=== PATIENT | female | born 1950 | race Caucasian/White ===

== ENCOUNTER → 2019-05-08 12:02 | Outpatient (BNVA) | payer MEDICARE, MEDICAID, SELFPAY | PROVIDERS: Family Provider Nurse Practitioner Family; PCP Nurse Practitioner Family; Visit Provider Nurse Practitioner Family | DX: M54.5 Low back pain (principal); M79.605 Pain in left leg; M25.552 Pain in left hip; I10 Essential (primary) hypertension; Z79.899 Other long term (current) drug therapy; E03.9 Hypothyroidism, unspecified | CPT/HCPCS: 36415; 80053; 81001; 83036; 84443; 85025 ==

== ENCOUNTER 2019-06-28 09:19 | Outpatient (CLI) | payer MEDICARE, MEDICAID, SELFPAY ==
--- NOTE | 2019-06-28 09:30 | MR_ITS ---
WS: [id number] MRI LUMBAR SPINE WITH CONTRAST TECHNIQUE: Sagittal T1, T2 and STIR imaging. Axial T1 and T2 imaging. Post gadolinium imaging was obt ained. CLINICAL INFORMATION: Low back pain COMPARISON: April 08, 2016 FINDINGS: Moderate lumbar curve convex right. Pedicle screw fixation L4-5 and L5-S1 with interbody fusion. L1-L2: Mild annular bulging. Moderate central canal stenosis. Narrowing of the subarticular recess bi laterally. Moderate facet arthropathy. Mild right and no significant left foraminal narrowing. L2-L3: Disc osteophyte complex endplate ridging. Impingement left subarticular recess. Mild left fora zehra narrowing. Impingement on the traversing left L3 nerve root. Moderate central canal stenosis. F oramen are patent. Moderate facet arthropathy. L3-L4: Minimal annular bulging with endplate ridging. Moderate facet arthropathy. Spinal canal and fo ramen are patent. Moderate central canal stenosis. L4-L5: Pedicle screw fixation. Interbody fusion. Spinal canal and foramen are patent. Spinal canal woods s been decompressed. L5-S1: Pedicle screw fixation L5-S1 with interbody fusion. Spinal canal and foramen are patent. Visualized pelvic bony structures: Normal. Paravertebral soft tissues: Normal. MR/MR lumbar spine wo/w con [id number] IMPRESSION: 1. Pedicle screw fixation L4-5 with interbody fusion and laminectomy defects n ew from April 08, 2016. 2. Spinal canal and foramen are patent at the fusion levels. 3. Moderate central canal stenosis L1-L2, L2-L3 and L3-L4 due to disc bulging and facet arthropathy with ligamentum flavum hypertrophy. Impingement on the le ft L2-3 subarticular recess. 4. Small right foraminal protrusion L1-2 with mild right foraminal narrowing. 5. Mild left L2-3 foraminal narrowing.
== END 2019-06-28 09:20 | disposition home or self-care (01) ==
LOC: RADWPI 09:25
PROVIDERS: Family Provider Nurse Practitioner Family; PCP Nurse Practitioner Family; Visit Provider Licensed Practical Nurse
DX: M51.17 Intervertebral disc disorders with radiculopathy, lumbosacral region (principal); M54.5 Low back pain
CPT/HCPCS: 72158; A9579

== ENCOUNTER → 2019-07-12 07:36 | Outpatient (BNVA) | payer MEDICARE, MEDICAID, SELFPAY | PROVIDERS: Family Provider Nurse Practitioner Family; PCP Nurse Practitioner Family; Visit Provider Nurse Practitioner | DX: F43.12 Post-traumatic stress disorder, chronic (principal); F33.2 Major depressive disorder, recurrent severe without psychotic features; G47.30 Sleep apnea, unspecified; F17.211 Nicotine dependence, cigarettes, in remission; F33.9 Major depressive disorder, recurrent, unspecified | CPT/HCPCS: 99213 ==

== ENCOUNTER → 2019-10-31 08:40 | Outpatient (BNVA) | payer MEDICARE, MEDICAID, SELFPAY | PROVIDERS: Family Provider Nurse Practitioner Family; PCP Nurse Practitioner Family; Visit Provider Nurse Practitioner | DX: F43.12 Post-traumatic stress disorder, chronic (principal); F33.2 Major depressive disorder, recurrent severe without psychotic features | CPT/HCPCS: 99214 ==

== ENCOUNTER → 2019-11-28 08:24 | Outpatient (BNVA) | payer MEDICARE, MEDICAID, SELFPAY | PROVIDERS: Family Provider Nurse Practitioner Family; PCP Nurse Practitioner Family; Visit Provider Nurse Practitioner | DX: F33.2 Major depressive disorder, recurrent severe without psychotic features (principal); F43.12 Post-traumatic stress disorder, chronic | CPT/HCPCS: 99213 ==

== ENCOUNTER 2019-12-25 07:37 | Outpatient (CLI) | payer MEDICARE, MEDICAID, SELFPAY ==
--- NOTE | 2019-12-25 | MR_ITS ---
WS: [id number] MRI NECK with and without CONTRAST. COMPARISON: 03/24/2015 Multiplanar, multisequence imaging is performed with and without contrast. Quality of this examination is limited by body habitus and motion. Patient has a known large multiloculated RIGHT basal ganglia cyst. This has been reported on multiple prior examinations with no increase in size. 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 There is very minimal asymmetry of the larynx at the level of the vocal c ords but no discrete enhancing mass. Slightly increased soft tissue on the LEFT which does not enhanc e. In part this is probably due to position of the patient. No lymph nodes are identified. Submandibu lar glands and parotid glands are normal. Moderate-sized LEFT mastoid air cell effusion. Lung apices are clear. MR/MR orbit face neck wo/w* [id number] IMPRESSION: 1. No lymphadenopathy or abnormal enhancement within the neck. 2. Stable cyst in the RIGHT basal ganglia and stable Tornwaldt cyst. 3. No parotid gland mass. 4. Study is limited by motion artifact. Consider additional evaluation by CT w ith contrast.
== END 2019-12-25 07:38 | disposition home or self-care (01) ==
LOC: RADSHAW 07:40
PROVIDERS: PCP Nurse Practitioner Family; Visit Provider Specialist
DX: R22.1 Localized swelling, mass and lump, neck (principal); M67.48 Ganglion, other site; J39.2 Other diseases of pharynx
CPT/HCPCS: 70543; A9579

== ENCOUNTER 2020-04-21 06:00 | Outpatient (RCR) | payer MEDICARE, MEDICAID, SELFPAY | END 2020-05-10 23:59 | disposition home or self-care (01) | LOC: WPT 06:00 | PROVIDERS: PCP Nurse Practitioner Family; Referring Provider Nurse Practitioner Family; Visit Provider Nurse Practitioner Family | DX: R42 Dizziness and giddiness (principal) | CPT/HCPCS: 80053; 80061; 81003; 82306; 83036; 84443; 85025; 97110; 97163; 97530 ==

== ENCOUNTER → 2020-04-22 09:34 | Outpatient (BNVA) | payer MEDICARE, MEDICAID, SELFPAY | PROVIDERS: PCP Nurse Practitioner Family; Visit Provider Nurse Practitioner Family | DX: E03.9 Hypothyroidism, unspecified (principal) | CPT/HCPCS: 84481 ==

== ENCOUNTER 2020-05-18 14:49 | Outpatient (CLI) | payer MEDICARE, MEDICAID, SELFPAY ==
--- NOTE | 2020-05-18 14:52 | MR_ITS ---
WS: [id number] MRI HEAD WITH CONTRAST TECHNIQUE: Sagittal T1, T2 axial, T2 axial FLAIR, axial susceptibility weighted imaging, axial diffus ion weighted images, and coronal T2 images were obtained. Pre and post-T1 axial and post T1 coronal i mages. ADC and FSPGR images. CLINICAL INFORMATION: G93.0 - Cerebral cysts COMPARISON: MRI December 25, 2019 and April 2012. FINDINGS: Stable multiloculated cystic lesion within the right basal ganglia unchanged appearance [id number]. A few internal septations. This is most compatible with a neuroglial cyst. No evidence of progression. No progressed surrounding T2 signal abnormality or edema. No abnormal gadolinium enhancement. Stable associated shunt within the dependent portion of the cyst. No hydrocephalus. No restricted diffusion to suggest acute ischemia. Mild small vessel changes. Moder ate parenchymal volume loss. Small vessel changes in the hayde. Normal posterior fossa. Normal vascula r flow voids at the skull base. No extra axial fluid collections. Paranasal sinuses and mastoid air c ells are well aerated. Stable Tornwaldt cyst in the posterior nasopharynx. No abnormal gadolinium enh ancement. Normal dural venous sinuses. MR/MR head wo/w con [id number] IMPRESSION: 1. Stable multiloculated cystic lesion right basal ganglia with unchanged jhon nt. 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 2. No restricted diffusion to suggest acute ischemia. 3. Mild small vessel changes progressed since 2012. Moderate parenchymal volum e loss. 4. No other significant findings.
[2020-05-18] MEDS: gadobenate dimeglumine 20 mL vial IV (16:47)
== END 2020-05-18 14:50 | disposition home or self-care (01) ==
LOC: RADSHAW 14:49
PROVIDERS: PCP Family Medicine; Visit Provider Nurse Practitioner Family
DX: G93.0 Cerebral cysts (principal)
CPT/HCPCS: 70553; A9577

== ENCOUNTER → 2020-06-04 00:01 | Outpatient (BNVA) | payer MEDICARE, MEDICAID, SELFPAY | PROVIDERS: PCP Family Medicine; Visit Provider Nurse Practitioner Family | DX: J01.40 Acute pansinusitis, unspecified (principal); E03.9 Hypothyroidism, unspecified | CPT/HCPCS: 84439; 84443 ==

== ENCOUNTER → 2020-08-13 11:34 | Outpatient (BNVA) | payer MEDICARE, MEDICAID, SELFPAY | PROVIDERS: PCP Family Medicine; Visit Provider Specialist | DX: G24.5 Blepharospasm (principal); G93.0 Cerebral cysts; Z87.891 Personal history of nicotine dependence | CPT/HCPCS: 99215 ==

== ENCOUNTER → 2020-08-19 12:02 | Outpatient (BNVA) | payer MEDICARE, MEDICAID, SELFPAY | PROVIDERS: PCP Family Medicine; Visit Provider Nurse Practitioner Family | DX: E03.9 Hypothyroidism, unspecified (principal); J01.40 Acute pansinusitis, unspecified | CPT/HCPCS: 84439; 84443; 84481 ==

== ENCOUNTER → 2020-09-01 11:33 | Outpatient (BNVA) | payer MEDICARE, MEDICAID, SELFPAY | PROVIDERS: PCP Family Medicine; Visit Provider Nurse Practitioner | DX: F33.2 Major depressive disorder, recurrent severe without psychotic features (principal); F43.12 Post-traumatic stress disorder, chronic | CPT/HCPCS: 99214 ==

== ENCOUNTER → 2020-11-26 07:15 | Outpatient (BNVA) | payer MEDICARE, MEDICAID, SELFPAY | PROVIDERS: PCP Family Medicine; Visit Provider Nurse Practitioner | DX: F33.2 Major depressive disorder, recurrent severe without psychotic features (principal); F43.12 Post-traumatic stress disorder, chronic | CPT/HCPCS: 99214 ==

== ENCOUNTER 2021-02-04 08:34 | Outpatient (CLI) | payer MEDICARE, MEDICAID, SELFPAY ==
[2021-02-04 08:49] VITALS: BMI 30.7
--- NOTE | 2021-02-04 09:49 | ECG_ITS ---
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 The perfusion scan will be documented separately. DATA: Baseline heart rate was 72 beats per minute. Baseline blood pressure was 220/70 millimeters of mercury. Target heart rate was 151. Maximum heart rate achieved was 93. which was 61 % of the predicted target heart rate. Maximum blood pressure was 220/70 millimeters of mercury. The reason for ending the test was completion of the protocol. The patient did not experience any symptoms. ELECTROCARDIOGRAM: BASELINE: Sinus rhythm. Normal axis. Old anterior wall myocardial infarction poor R wave progression due to lead placement otherwise, no ST-T changes suggestive of ischemia noted. No arrhythmia noted. After Lexiscan injection, PVCs were noted no ST-T changes suggestive of ischemic noted. CONCLUSION: Please note due to baseline abnormality of the EKG specificity and sensitivity of the EKG portion of LexiScan MIBI stress test will be low 1. EKG not suggestive of ischemia 2. Lexiscan injection unremarkable. 3. Blood pressure response was hypertensive 4. Perfusion scan will be documented separately. Electronically Signed On 02-04-2021 20:49:17 CDT by GERARDO MANCILLA [id number]
--- NOTE | 2021-02-04 09:49 | NMCV_ITS ---
NM americo perf SPECT r/s* [id number] Marycarmen Costello Age: 70 Gender: F : 1950 Exam Date: 02/04/2021 09:49 Ordering Phys: Peter Stoddard PA-C XX Technologist: MICHAEL Leos Exam Location: [facility] Indications: CHEST PAIN STRESS TEST Please see separate stress test report in [facility] for full findings IMAGE PROTOCOL Rest/Stress 1 Lexiscan Day Radiopharmaceutical Dose (mCi) Administration Site Administered by Rest: Tc-99m 10.8 IV MICHAEL Garsia Sestamibi Stress:Tc-99m 32.7 IV MICHAEL Garsia Sestamibi Rest: 04-Feb-2021 60 Discovery 630 Stress: 04-Feb-2021 30 Discovery 630 0.4mg Lexiscan. Images obtained in supine and prone position. SPECT RESULTS Technical Quality: Excellent Raw Data Analysis: Normal Image Corrections: No attenuation or motion correction applied Summed Stress Score: 1 Summed Rest Score: 0 Summed Difference Score: 1 PERFUSION FINDINGS Medium-sized area of patchy reduced tracer uptake noted in basal to mid anterior wall in the absence of wall motion abnormality it could be an artifact. Small area of mild reversibility noted in basal to mid inferior wall, in the absence of wall motion of normality it could be an artifact however cannot rule out ischemia and therefore clinical correlation advised. FUNCTIONAL RESULTS (calculated via Gated SPECT) Stress Image LV EF (%): 83 Stress EDV (mL):76 TID: 1 Stress ESV (mL):13 Rest Image LV EF (%): 83 FUNCTIONAL FINDINGS: There is normal left ventricular systolic function. IMPRESSIONS Medium-sized area of patchy reduced tracer uptake noted in basal to mid anterior wall in the absence of wall motion abnormality it could be an artifact. Small area of mild reversibility noted in basal to mid inferior wall, in the absence of wall motion of normality it could be an artifact however cannot rule out ischemia and therefore clinical correlation advised. EKG segment will be documented separately. Angelita Shine MD (Electronically Signed) Final Date: 04 February 2021 18:03 S
[2021-02-04] MEDS: regadenoson 0.4 Mg/5 ml Syringe IVP (10:28)
== END 2021-02-04 08:35 | disposition home or self-care (01) ==
PROVIDERS: PCP Family Medicine; Visit Provider Physician Assistant Medical
DX: R07.9 Chest pain, unspecified (principal)
CPT/HCPCS: 78452; A9500; J2785

== ENCOUNTER → 2021-02-18 07:52 | Outpatient (BNVA) | payer MEDICARE, MEDICAID, SELFPAY | PROVIDERS: PCP Family Medicine; Visit Provider Nurse Practitioner | DX: F33.2 Major depressive disorder, recurrent severe without psychotic features (principal); F43.12 Post-traumatic stress disorder, chronic; F33.9 Major depressive disorder, recurrent, unspecified | CPT/HCPCS: 99214 ==

== ENCOUNTER 2021-03-25 12:58 | Outpatient (CLI) | payer MEDICARE, MEDICAID, SELFPAY ==
--- NOTE | 2021-03-25 13:17 | MM_ITS ---
WS: [id number] Bilateral screening digital mammogram, 03/25/2021 Clinical Data: SCREENING Comparison: 01/10/2019, 11/26/2018, 12/07/2017, 11/21/2017, 10/29/2015, 09/30/2014, 03/09/2012, 02/14/2011, 08/30/2010, 01/07/2010. Findings: The breast parenchymal pattern shows fibroglandular tissue No spiculated masses or clustered calcific ations are seen. There are no secondary signs of carcinoma. There is a biopsy clip in the upper outer quadrant of the right breast. MM/[place] [id number] Impression: 1. Negative bilateral mammogram unchanged. 2. Recommend annual screening mammograms. BIRADS: 2-Benign FOLLOW UP: 1 Year Follow-up The CAD frickertron checker was used.
== END 2021-03-25 12:59 | disposition home or self-care (01) ==
LOC: RADSHAW 13:14
PROVIDERS: PCP Nurse Practitioner Family; Visit Provider Nurse Practitioner Family
DX: Z12.31 Encounter for screening mammogram for malignant neoplasm of breast (principal)
CPT/HCPCS: 77067

== ENCOUNTER → 2021-04-14 13:54 | Outpatient (BNVA) | payer MEDICARE, MEDICAID, SELFPAY | PROVIDERS: PCP Nurse Practitioner Family; Referring Provider Physician Assistant Medical; Visit Provider Podiatrist Foot & Ankle Surgery | DX: M25.571 Pain in right ankle and joints of right foot (principal); M79.672 Pain in left foot | CPT/HCPCS: 73610; 77077 ==

== ENCOUNTER 2021-04-14 14:35 | Outpatient (CLI) | payer MEDICARE, MEDICAID, SELFPAY | END 2021-04-14 14:36 | disposition home or self-care (01) | LOC: SPT 14:39 | PROVIDERS: PCP Nurse Practitioner Family; Visit Provider Podiatrist Foot & Ankle Surgery | DX: Z46.89 Encounter for fitting and adjustment of other specified devices (principal); M76.61 Achilles tendinitis, right leg; M76.62 Achilles tendinitis, left leg | CPT/HCPCS: 97760; L4397 ==

== ENCOUNTER → 2021-05-18 07:25 | Outpatient (BNVA) | payer MEDICARE, MEDICAID, SELFPAY | PROVIDERS: PCP Nurse Practitioner Family; Visit Provider Nurse Practitioner | DX: F33.2 Major depressive disorder, recurrent severe without psychotic features (principal); F43.12 Post-traumatic stress disorder, chronic; F33.9 Major depressive disorder, recurrent, unspecified | CPT/HCPCS: 99214 ==

== ENCOUNTER → 2021-07-15 10:27 | Outpatient (BNVA) | payer MEDICARE, MEDICAID, SELFPAY | PROVIDERS: PCP Nurse Practitioner Family; Visit Provider Internal Medicine Cardiovascular Disease | DX: I10 Essential (primary) hypertension (principal); R94.39 Abnormal result of other cardiovascular function study; G47.33 Obstructive sleep apnea (adult) (pediatric); E78.2 Mixed hyperlipidemia; E03.9 Hypothyroidism, unspecified; Z87.891 Personal history of nicotine dependence | CPT/HCPCS: 99215 ==

== ENCOUNTER 2021-07-27 08:09 | Outpatient (CLI) | payer MEDICARE, MEDICAID, SELFPAY ==
[2021-07-27 08:59] LABS: Basophils % 0.8 %; Eosinophils # 0.2 10^3/uL (0.0-0.8); Eosinophils % 3.7 %; Hematocrit 35.3 % (37.0-47.0); Hemoglobin 10.9 g/dL (11.5-15.3); Lymphocytes # 1.3 10^3/uL (0.8-4.8); Lymphocytes % 24.3 %; Mean Corpuscular HGB Conc 30.9 g/dL (30.0-36.0); Mean Corpuscular Hemoglobin 28.3 pg (28.0-34.0); Mean Corpuscular Volume 91.7 fl (81-99); Mean Platelet Volume 10.8 fL (7.4-10.4); Monocytes # 0.4 10^3/uL (0.2-0.9); Monocytes % 7.2 %; Neutrophils # 3.23 10^3/uL (1.8-7.7); Neutrophils % 62.6 %; Nucleated Red Blood Cells % 0 %; Platelet Count 195 10^3/cmm (130-400); Red Blood Count 3.85 10^6/uL (4.1-5.3); Red Cell Distribution Width 14.7 % (12.1-15.1); White Blood Count 5.2 10^3/uL (4.0-10.0)
[2021-07-27 09:09] LABS: Anion Gap 15.9 (5-19); Blood Urea Nitrogen 20 mg/dL (8-23); Calcium 9.8 mg/dL (8.5-10.5); Carbon Dioxide 24 mmol/L (22-29); Chloride 104 mmol/L (98-107); Glomerular Filtration Rate 49.1 mL/min (90-130); Glucose 119 mg/dL (65-115); Osmolality Calculated 294 mOsm/kg (285-295); Potassium 3.9 mmol/L (3.5-5.1); Sodium 140 mmol/L (136-145)
[2021-07-27 09:20] LABS: INR 0.97 (0.83-1.21); Prothrombin Time (Patient) 13.1 Seconds (12.0-15.1)
== END 2021-07-27 08:10 | disposition home or self-care (01) ==
LOC: LAB 08:11
PROVIDERS: PCP Nurse Practitioner Family; Visit Provider Internal Medicine Cardiovascular Disease
DX: R94.39 Abnormal result of other cardiovascular function study (principal)
CPT/HCPCS: 36415; 80048; 85025; 85610; 86850; 86900

== ENCOUNTER 2021-07-29 07:43 | Outpatient (CLI) | payer MEDICARE, MEDICAID, SELFPAY ==
[2021-07-29] VITALS (8 sets, daily range): BP systolic 168–188; BP diastolic 65–80; PULSE 60–78; RESP 8–22; TEMP 36.6–36.8; O2SAT 94–96; BMI 31.5
--- NOTE | 2021-07-29 07:00 | XACV_ITS ---
Ht: 178 cm Wt: 100 kg BSA: 2.25 m2 Gender: Female : 1950 Any Known Allergies: Other Exam Priority: Routine Procedure(s): Procedure Description: Diagnostic procedure Procedure Description: Left Heart Catheterization Procedure Description: Left ventriculography Procedure Description: Coronary Angiography Saad RHODES; Diagnostic Cath Status: Elective Diagnostic Findings * Left main is a medium caliber vessel with no significant stenotic lesions. * The left anterior descending artery is a medium caliber vessel which appears to wrap around the LV apex minimally. The proximal and mid segment of the artery was found to have mild diffuse intimal irregularities. No significant stenotic lesions were seen. * The left circumflex artery is a medium caliber vessel which was found to be bifurcating at the mid segment. One of the bifurcation branches was found to have an ostial 30% narrowing. No other significant stenotic lesions were seen. * The right coronary artery is a medium caliber dominant vessel which was found to have some minimal intimal irregularities in the distal segment. No significant stenotic lesions were noted. Conclusions 1. 71-year-old white female with multiple risk factors for coronary artery disease, presenting with complaints of chest pain/easy fatigability/dyspnea on exertion. She had an abnormal myocardial perfusion imaging. Because of the worsening of her symptoms, in order to further evaluate the coronary status, cardiac catheterization was recommended. Patient underwent left heart catheterization with left and right coronary angiogram and LV angiogram today. The findings are as follows.. 2. Mild diffuse coronary artery disease. Elevated LVEDP of 28 mmHg. Normal LV ejection fraction of 60%.. Diagnostic RX Recommendation: medical therapy and/or counseling LV EDP: 28 mmHg Ventriculography Ejection Fraction: 60.0 % Left Ventriculography Findings: * The LV gram was performed in the THOMAS projection. The LV cavity appears to be of normal size. LV ejection fraction was around 60%. No filling defects were noted. No significant mitral valve prolapse or mitral regurgitation. The LVEDP was 28 mmHg. Pressures Phase:Rest AO : / ( 30 ) @ 9:58:00 AM 151 / 85 ( 110 ) @ 10:14:00 AM 145 / 79 ( 106 ) @ 10:14:00 AM 174 / 67 ( 111 ) @ 10:23:00 AM 175 / 61 ( 114 ) @ 10:23:00 AM 175 / 72 ( 115 ) @ 10:23:00 AM LV : 176 / 10 / 25 @ 10:22:00 AM 173 / 9 / 28 @ 10:23:00 AM 173 / 7 / 28 @ 10:23:00 AM Valves Phase:DefaultPhase AV : 0.0 @ 9:32:33 AM 0.0 @ 9:32:33 AM AV Mean Gradient: 0.0 @ 9:32:33 AM Clinical Evaluation EBL: 5mL-10mL Procedural Details Procedure Consent Obtained. Admit Source: Out Patient. Pre-Procedure Time Out. Identified patient by full name and date of as verbalized by the patient/guarantor. Does the consent match the physician's order: Yes. Accurate & Complete Informed Consent: Yes. Inpatient/Outpatient History & Physical on Chart: Yes. If H&P is completed, is and addenduem needed: No; If yes, is the addendum complete: N/A. Visualize and Verify Site with Patient/Guarantor: N/A. Relevant Radiology Images available: N/A. The risks, benefits, and alternatives of sedation and/or procedure were discussed by physician. The patient agrees to continue. Procedure started. [facility] Clinical Fraility Score: 3: Managing Well. 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 Chest Pain Symptom Assessment: Atypical Angina. Cardiovascular Instability: No. Correct patient, site and procedure confirmed by cath team. Current diagnosis: Chest Pain, ASHD. PERRLA. 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 Lungs clear x 5 lobes. IV Site on Arrival: 20 gauge in the right anticubital. IV Fluids: 0.9% NaCl at KVO. 0 mL infused prior to carpenter/labor. Pre Procedural Pulses: bilateral radial was 3+. Pre Procedural Pulses: bilateral posterior tibial was 1+. Pre Procedural Pulses: bilateral dorsalis pedis was 1+. Oxygen started at 3liters/min via nasal canula. right groin was prepped with chloroprep then draped in the usual sterile fashion. right radial was prepped with chloroprep then draped in the usual sterile fashion. Physician notified. Baseline sample Acquired. HR: 77 BPM. Family available and updated by MD prior to the start of the procedure. Equipment: 5F - Femoral. Heparinized Saline (2 units/mL), 1000 mL bag. Cardiac Cath Pack. Incentive Manifold Kit Model BT 2000. Inventory is JJ 5F 11cm Anjali Plus Sheath. Equipment: 5F - Radial. Equipment: 6F - Radial. Equipment: 6F - Femoral. Physician arrived. Physician scrubbed in. Immediate Pre-Procedure Time Out. Correct Patient: Yes; Correct Procedure: Yes; Correct Site: Yes; Correct Patient Position: Yes; Correct Supplies: Yes; Dried Flammable Prep: Yes; Blood Products Available: N/A;. Current Diagnosis : Chest Pain. Lidocaine 1% infiltrated to the right radial. Arterial access obtained. A 5 tunisian Parvez catheter in over wire. Multiple views taken of left coronary artery. Catheter redirected to the RCA. Unable to cannulate the rca. Catheter removed over the wire. A CRD 5F JR4 Diagnostic Catheter was advanced over the wire and used for Right coronary angiography. Multiple views taken of right coronary artery. Catheter removed over the standard wire. A CRD 5F 145 Angled Pig Diagnostic Catheter was advanced over the wire and used for Ventriculography. EDP Sample taken: LV 176/10,25; HR: 77 BPM; SpO2: 96%. LV gram performed in THOMAS @ 10 mL/second for a total of 30 mL. EDP Sample taken: LV 173/9,28; HR: 76 BPM; SpO2: 95%. Patient EF: Normal. Pullback taken: LV 173/7,28; AO 174/67(111); Mean: 0mmHg, Peak to Peak: 0mmHg, SEP: 19sec/min; HR: 78 BPM; SpO2: 96%. Catheter removed over the standard wire. Physician review of films. Physician scrubbed out. A TR Band was successful obtaining hemostatsis at the Right Radial artery insertion site. TR band placed. Hemostasis obtained. Post Procedure: Pulses reassessed and unchanged. PERRLA. 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 No VTE prophylaxis required. Medication's Wasted: Lidocaine 1% = 5 mL. Medication's Wasted: Nitro = 49.8 mg. Medication's Wasted: Heparin = 1000 units. Medications wasted: Fentanyl 50 mcg and versed 1 mg IV. Total IV fluids: 39 mL. Fluoro: 5:06. Contrast type used: Omnipaque 300 mg/mL, 150 mL bottle. [id number]. Post-op diagnosis: Mild CAD. Complications: None. Estimated blood loss: 5mL-10mL. Responsiveness - Normal response to verbal stimuli; alert and oriented, PERRLA. Airway - Unaffected, no intervention required; spontaneous ventilation. Circulation: W/N/L, pulses unchanged. Nausea/Vomiting: No. Procedure completed. Patient transferred by bed to 1st floor. Vital chart was stopped. Access Site Site: Right Radial artery Sheath Size: 6 Fr Hemostasis Method: TR Band Hemostasis Success: Successful Procedure Medications Start: 9:04 AM Stop: 9:04 AM Medication: Versed Amount: 1 mg Route: I.V. Start: 9:05 AM Stop: 9:05 AM Medication: Fentanyl Amount: 50 mcg Route: I.V. Start: 9:09 AM Stop: 9:09 AM Medication: Verapamil Amount: 5 mg Route: I.A. Start: 9:10 AM Stop: 9:10 AM Medication: Nitrogylcerin Amount: 200 mcg Route: I.A. Start: 9:13 AM Stop: 9:13 AM Medication: Heparin Amount: 5000 units Route: I.V. I, the attending physician, have reviewed and verified all procedure medications. Yes, all medications given per verbal order History/Risk Factors Hypertension: Yes Dyslipidemia: Yes Peripheral Arterial Disease (PAD): No Myocardial Infarction (WI): No Obesity: No Renal Disease: No Tobacco Use: Current/Recent(w/in 1 year) Prior Interventions PCI: No CABG: No Valve Surgery: No Report Signatures Finalized by Dr Dyan Nash MD [facility] on 07/29/2021 08:30 PM
--- NOTE | 2021-07-29 08:15 | W.PM.OPSUD ---
Surgery/Procedure H&P Update DATE OF PROCEDURE: July 29, 2021 DATE H&P PERFORMED: 07/15/21 H&P UPDATE INFORMATION: I have reviewed H&P completed within last 30 days, I have examined patient prior to procedure and No changes to prior documentation PREOP DIAGNOSIS: ASHD PRIMARY INDICATION FOR PROCEDURE: Abnormal myocardial perfusion imaging/multiple risk factors for coronary artery disease/ongoing chest pain/fatigue PLANNED PROCEDURE: Operation Date: 07/29/21 08:30 Proposed Procedures p Cardiac Catheterization(Left) - Dyan Nash MD PATIENT REASSESSED PRIOR TO SEDATION, WITH NO CHANGE NOTED: Yes PHYSICAL EXAM: alert, oriented x 3, clear to auscultation bilaterally and regular rate & rhythm AIRWAY EVAL/ANESTHESIA PLAN: normal airway, see other exam findings, ASA III, Monitored Anesthesia, Local Anesthesia, Risks, benefits & alternatives of sedation and/or procedure discussed and Patient agrees to continue as planned
[2021-07-29] MEDS: diphenhydrAMINE 50 mg Capsule PO (08:20)
== END 2021-07-29 14:47 | disposition home or self-care (01) ==
LOC: CCL 07:43 → CSU 08:42
PROVIDERS: PCP Nurse Practitioner Family; Visit Provider Internal Medicine Cardiovascular Disease
DX: I25.10 Atherosclerotic heart disease of native coronary artery without angina pectoris (principal); I10 Essential (primary) hypertension; E78.2 Mixed hyperlipidemia; E03.9 Hypothyroidism, unspecified; J44.9 Chronic obstructive pulmonary disease, unspecified; Z87.11 Personal history of peptic ulcer disease; M19.90 Unspecified osteoarthritis, unspecified site; Z87.891 Personal history of nicotine dependence
CPT/HCPCS: 36415; 93452; 93458; 96360; 99152; 99153; C1769; C1887; C1894; J1644; J2250; J3010; J3490; J7030; Q0163; Q9967

== ENCOUNTER → 2021-08-12 10:35 | Outpatient (BNVA) | payer MEDICARE, MEDICAID, SELFPAY | PROVIDERS: PCP Nurse Practitioner Family; Visit Provider Nurse Practitioner Family | DX: Z09 Encounter for follow-up examination after completed treatment for conditions other than malignant neoplasm (principal); I25.10 Atherosclerotic heart disease of native coronary artery without angina pectoris; Z87.891 Personal history of nicotine dependence | CPT/HCPCS: 80048; 99214 ==

== ENCOUNTER 2021-10-13 09:41 | Outpatient (CLI) | payer MEDICARE, MEDICAID, SELFPAY ==
--- NOTE | 2021-10-13 10:00 | USCV_ITS ---
Marycarmen Costello Age: 71 Gender: F : 1950 Exam Date: 10/13/2021 10:31 Ordering Phys: Dyan Nash MD ([email or web address]) Technologist: MANDY Exam Location: [facility] Indication: LEFT BRUIT Risk Factors: Previous Vascular Surgery: Right Brachial BP: / Left Brachial BP: / Right Left Velocity (cm/s) Spectral Plaque Velocity (cm/s) Spectral Plaque Syst/Diast Broadening Syst/Diast Broadening 76.10/ 16.30 Prox CCA 110.30/ 16.40 92.40/ 20.20 Mid CCA 131.50/ 30.20 90.90/ 24.10 Distal CCA 111.70/ 19.70 101.70/29.10 Prox ICA 103.60/ 13.90 118.00/27.60 Mid ICA 107.70/ 24.10 130.10/36.40 Distal ICA 102.00/ 30.90 111.10 ECA 140.70 1.41 ICA/CCA 0.82 Antegrade Vertebral Antegrade 53.00/ 13.70 cm/s 41.90/ 11.70 cm/s Tri Subclavian Tri 183.5 147.1 0 0 FINDINGS Mild to moderate heterogeneous plaques at the bifurcations and proximal internal carotid arteries, bilaterally. Intimal thickening in the common carotid arteries bilaterally. Antegrade flow in the vertebral arteries bilaterally. Near normal Doppler velocities in the external carotid, vertebral and subclavian arteries bilaterally CONCLUSIONS Mild to moderate heterogeneous plaques at the bifurcations and proximal internal carotid arteries, bilaterally, consistent with less than 50% stenosis. No significant stenosis in the external carotid, vertebral and subclavian arteries, based on the above findings Dr Dyan Nash MD [facility] (Electronically Signed) Final Date: 14 October 2021 08:11 S
== END 2021-10-13 09:42 | disposition home or self-care (01) ==
PROVIDERS: PCP Nurse Practitioner Family; Visit Provider Internal Medicine Cardiovascular Disease
DX: R94.39 Abnormal result of other cardiovascular function study (principal); I65.23 Occlusion and stenosis of bilateral carotid arteries
CPT/HCPCS: 93880

== ENCOUNTER → 2021-11-01 09:48 | Outpatient (BNVA) | payer MEDICARE, MEDICAID, SELFPAY | PROVIDERS: PCP Nurse Practitioner Family; Visit Provider Internal Medicine Cardiovascular Disease | DX: I25.10 Atherosclerotic heart disease of native coronary artery without angina pectoris (principal); I11.9 Hypertensive heart disease without heart failure; Z87.891 Personal history of nicotine dependence; E78.2 Mixed hyperlipidemia; K21.9 Gastro-esophageal reflux disease without esophagitis | CPT/HCPCS: 99214 ==

== ENCOUNTER 2021-12-30 17:51 | Emergency (ER) | payer MEDICARE, MEDICAID, SELFPAY ==
--- NOTE | 2021-12-30 17:52 | XRR_ITS ---
PROCEDURE INFORMATION: Exam: XR Chest Exam date and time: 12/30/2021 6:55 PM Age: 71 years old Clinical indication: Chest wall pain; Additional info: Cp TECHNIQUE: Imaging protocol: Radiologic exam of the chest. Views: 1 view. COMPARISON: CT chest con [id number] 02/11/2019 11:17 AM FINDINGS: Lungs: Left lower lobe atelectasis versus minimal infiltrate. Pleural spaces: Unremarkable. No pleural effusion. No pneumothorax. Heart/Mediastinum: Unremarkable. No cardiomegaly. Bones/joints: Unremarkable. XR/XR chest 1V portable [id number] IMPRESSION: Left lower lobe atelectasis versus minimal infiltrate.
[2021-12-30 18:00] VITALS: BP 167/76; PULSE 71; RESP 20; TEMP 36.4; O2SAT 97; BMI 31.5
--- NOTE | 2021-12-30 18:34 | ECG_ITS ---
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 Measurements Intervals [place] Rate: 102 P: 39 NC: 157 QRS: 72 QRSD: 88 T: 76 QT: 358 QTc: 467 Interpretive Statements SINUS TACHYCARDIA ST DEVIATION AND MODERATE T-WAVE ABNORMALITY, CONSIDER LATERAL ISCHEMIA Compared to ECG 12/30/2021 20:17:59 T-wave abnormality now present Possible ischemia now present Sinus rhythm no longer present Electronically Signed On 02-12-2022 10:52:51 CDT by Jazlyn Alvarez M.D. [email or web address]
--- NOTE | 2021-12-30 18:40 | ED_ITS ---
HPI - General Adult General: Chief complaint: Upper Respiratory Infection Stated complaint: chest tightness Time Seen by Provider: 12/30/21 18:33 History of Present Illness: 71-year-old female presenting today with chest tightness. Patient notes she has a history of COPD. Was recently diagnosed with COVID. Had a Solu-Medrol shot. [place] great for several days. However now she is feels bad again. She notes that she has left-sided chest heaviness with radiation into her back. Also cough productive for sputum. Shortness of breath with exertion. No significant chest pain otherwise. No pain or swelling in her lower extremities. No history of blood clots. No recent travel or recent surgeries. No other sick contacts Review of Systems General: Reports: 10 or more systems reviewed and unremarkable except in HPI and below PFSH ED PFSH: Medical History Acute bacterial sinusitis Anxiety and depression Arachnoid cyst Atherosclerosis of coronary artery Blepharospasm Patient was treated by Dr. Carl 12/2018 with Botox. Chest pain DDD (degenerative disc disease), thoracolumbar Environmental and seasonal allergies Essential (primary) hypertension GERD (gastroesophageal reflux disease) Hypothyroid Patient is compliant with thyroid medications and regular lab visits as needed. Insomnia Intervertebral disc disorder with radiculopathy of lumbosacral region Left hip pain Lower respiratory infection Major depressive disorder, recurrent severe without psychotic features Mixed hyperlipidemia Multiple lung nodules Nicotine dependence, cigarettes, in remission Otitis media Otitis media Post-traumatic stress disorder, chronic Psychiatric care Sinusitis Sleep apnea, unspecified Vertigo Vitamin D deficiency Surgical History H/O bladder repair surgery History of brain shunt 1998 [facility]. Right cerebral shunt tube: Arachnoid cyst History of hip surgery right hip replacement Status post laminectomy with spinal fusion 2015 [place]: L4-L5, L5-S1 lumbar decompression/fusion/fixation Family History Father Cancer Mother Heart disease CAD (coronary artery disease), Onset Age: 60 Chronic kidney disease (CKD) Lung disease Family/Other Diabetes Grandmother Lung disease Brother Stroke Denies family history of Clotting disorder Dementia Suicide Anesthesia complication Bleeding disorder Social History Smoking and tobacco status: former smoker Alcohol intake: never Household members: none Marital status: Current occupational status: disabled History of recent travel: No Physical Exam Const: COMMON NORMALS: no acute distress, patient oriented x3 and alert GENERAL APPEARANCE: cooperative ORIENTATION/CONSCIOUSNESS: Yes awake, Yes oriented to person, Yes oriented to place and Yes oriented to time HENMT: COMMON NORMALS: normocephalic, atraumatic, external ears normal, Normal external nose present and moist oral mucous membranes HEAD & SCALP: normal to inspection, normocephalic and atraumatic NOSE: Normal external nose present GENERAL EAR: hearing grossly impaired EXTERNAL EAR: Yes external ears normal Eye: COMMON NORMALS: Equal, round and reactive pupils present, EOMs intact bilaterally, conjunctivae normal and no scleral icterus GENERAL EYE: ap pearance normal, both eyes and all related structures EYELID: eyelids normal CONJUNCTIVA: Yes conjunctivae normal SCLERA: sclerae normal PUPIL: Yes Equal, round and reactive pupils present Neck/C-Spine: COMMON NORMALS: full ROM, supple and no JVD GENERAL: Yes normal visual inspection Lymph: LYMPHATIC: no lymphadenopathy noted and no lymphedema noted Chest: COMMONS NORMALS: normal inspection of the chest (Decreased breath sounds on the left. Poor airflow.) Resp: COMMON NORMALS: normal respiratory effort, No retractions and No use of accessory muscles Cardio: COMMON NORMALS: no JVD, regular rate and regular rhythm RATE: regular rate RHYTHM: regular rhythm GI: COMMON NORMALS: Normal to inspection, nondistended, normoactive bowel sounds present : COMMON NORMALS: Yes no CVA tenderness BLADDER/KIDNEY EXAM: Yes no CVA tenderness Back/Pelvis: COMMON NORMALS: no CVA tenderness and thoracic and lumbar spine normal to inspection Extremity: COMMON NORMALS: normal to inspection, full ROM and capillary refill normal GENERAL: Yes normal exam except as noted Neuro: COMMON NORMALS: patient oriented x3, CN's II-XII intact bilaterally, moves all extremities, no focal motor deficits, no sensory deficits noted and g ait normal SENSORIUM/ORIENTATION: Yes alert, Yes oriented to person, Yes oriented to place and Yes oriented to time Psych: COMMON NORMALS: mental status grossly normal, Normal thought process present, cooperative and normal affect THOUGHT PROCESS: Normal thought process present Skin: COMMON NORMALS: no rashes or lesions noted and no wounds GENERAL SKIN EXAM: no rashes or lesions noted Course Vital Signs: Vital signs: Vital Signs Temperature 97.5 F L 12/30/21 18:00 Pulse Rate 73 12/30/21 21:29 Respiratory Rate 19 H 12/30/21 21:29 Blood Pressure 197/71 12/30/21 21:29 Pulse Oximetry 98 12/30/21 21:29 Oxygen Delivery Me thod 12/30/21 21:29 MDM - General Adult Medical Decision Making 71-year-old female presenting today with shortness of breath. EKG is without significant ST wave changes to suggest ischemia. Vitals are within normal limits. Exam with prolonged expiratory effort as well as decreased breath sounds. Patient with history of COPD. Chest x-ray without significant pneumonia. Suspect COPD exacerbation with superimposed COVID. We will start patient on antibiotics and prednisone. Patient was given strict return precautions and recommended routine outpatient follow-up. Lab Data : 12/30/21 18:55 12/30/21 18:55 Radiology Impressions Chest X-Ray 12/30/21 17:52 IMPRESSION: Left lower lobe atelectasis versus minimal infiltrate. Laboratory Results WBC 10.3 10^3/uL (4.0-10.0) H 12/30/21 18:55 RBC 4.73 10^6/uL (4.1-5.3) 12/30/21 18:55 Hgb 13.5 g/dL (11.5-15.3) 12/30/21 18:55 Hct 42.8 % (37.0-47.0) 12/30/21 18:55 MCV 90.5 fl (81-99) 12/30/21 18:55 MCH 28.5 pg (28.0-34.0) 12/30/21 18:55 MCHC 31.5 g/dL (30.0-36.0) 12/30/21 18:55 RDW 14.4 % (12.1-15.1) 12/30/21 18:55 Plt Count 272 10^3/cmm (130-400) 12/30/21 18:55 MPV 10.0 fL (7.4-10.4) 12/30/21 18:55 Neut % (Auto) 68.1 % 12/30/21 18:55 Lymph % (Auto) 16.5 % 12/30/21 18:55 [place] % (Auto) 9.9 % 12/30/21 18:55 Eos % (Auto) 0.2 % 12/30/21 18:55 Baso % (Auto) 0.4 % 12/30/21 18:55 Neut # (Auto) 7.02 10^3/uL (1.8-7.7) 12/30/21 18:55 Lymph # (Auto) 1.7 10^3/uL (0.8-4.8) 12/30/21 18:55 [place] # (Auto) 1.0 10^3/uL (0.2-0.9) H 12/30/21 18:55 Eos # (Auto) 0.0 10^3/uL (0.0-0.8) 12/30/21 18:55 Baso # (Auto) 0.0 10^3/uL (0.0-0.1) 12/30/21 18:55 Nucleated RBC % (auto) 0 % 12/30/21 18:55 Nucleated RBCs # 0.0 /100WBC 12/30/21 18:55 Sodium 138 mmol/L (136-145) 12/30/21 18:55 Potassium 4.5 mmol/L (3.5-5.1) 12/30/21 18:55 Chloride 99 mmol/L (98-107) 12/30/21 18:55 Carbon Dioxide 27 mmol/L (22-29) 12/30/21 18:55 Anion Gap 16.5 (5-19) 12/30/21 18:55 BUN 19 mg/dL (8-23) 12/30/21 18:55 Creatinine 1.0 mg/dL (0.5-0.9) H 12/30/21 18:55 GFR Calculation 54.8 mL/min (90-130) L 12/30/21 18:55 Glucose 102 mg/dL (65-115) 12/30/21 18:55 Calculated Osmolality 288 mOsm/kg (285-295) 12/30/21 18:55 Calcium 10.1 mg/dL (8.5-10.5) 12/30/21 18:55 Total Bilirubin 0.3 mg/dL (0.15-1.2) 12/30/21 18:55 AST 45 U/L (0-32) H 12/30/21 18:55 ALT 52 U/L (0-33) H 12/30/21 18:55 Alkaline Phosphatase 120 U/L (35-105) H 12/30/21 18:55 Troponin T Baseline 22 ng/L (0-10) H 12/30/21 18:55 Troponin T 120 Minute 17.86 ng/L (0-10) H 12/30/21 20:47 Delta Troponin T -4.14 ABS# (0-10) L 12/30/21 20:47 Total Protein 8.2 g/dL (6.6-8.7) 12/30/21 18:55 Albumin 4.8 g/dL (3.5-5.2) 12/30/21 18:55 Globulin 3.4 g/dL (1.3-4.6) 12/30/21 18:55 Discharge Plan Discharge Patient Disposition: Home Clinical Impression: COPD exacerbation Condition: Stable Prescriptions: New prednisone 50 mg tablet 50 mg PO DAILY Qty: 5 0RF Zithromax Z-Rocael 250 mg tablet See Rx Instructions PO .COMPLEX Qty: 6 0RF Rx Instructions: For 250 mg dose pack: take 500 mg today (day 1), then 250 mg for 4 days (days 2-5) No Action omega-3 fatty acids [Fish Oil Concentrate] 1,000 mg capsule 1,000 mg PO BID allopurinol 100 mg tablet 100 mg PO DAILY ergocalciferol (vitamin D2) 1,250 mcg (50,000 unit) capsule 1,250 mcg PO DAILY cyanocobalamin (vitamin B-12) 1,000 mcg capsule 1,000 mcg PO DAILY nitroglycerin 0.4 mg tablet, sublingual 0.4 mg sublingual Q5M PRN (Reason: chest pain) 30 Days Qty: 30 3RF Rx Instructions: until response; do not exceed 3 doses per episode (DME) night splint See Rx Instructions .Route .MEDSUPPLY Qty: 1 0RF Rx Instructions: As directed amlodipine 5 mg tablet 5 mg PO DAILY Qty: 90 3RF cholecalciferol (vitamin D3) [Optimal D3] 1,250 mcg (50,000 unit) capsule See Rx Instructions .ROUTE .COMPLEX Qty: 4 5RF Dose Instruction: Take 1 capsule by mouth once a week Rx Instructions: Take 1 capsule by mouth once a week atorvastatin 20 mg tablet See Rx Instructions .ROUTE .COMPLEX Qty: 90 0RF Dose Instruction: Take 1 tablet by mouth once daily for 90 days Rx Instructions: Take 1 tablet by mouth once daily for 90 days trazodone 100 mg tablet 100 mg PO .HS Qty: 90 0RF duloxetine 60 mg capsule,delayed release(DR/EC) 60 mg PO DAILY 90 Days Qty: 90 0RF isosorbide mononitrate 30 mg tablet extended release 24 hr 30 mg PO DAILY Qty: 90 3RF losartan 100 mg tablet 100 mg PO DAILY Qty: 90 3RF metoprolol succinate 100 mg tablet extended release 24 hr 100 mg PO DAILY omeprazole 40 mg capsule,delayed release(DR/EC) 40 mg PO DAILY Rx Instructions: Take 1 capsule by mouth once daily levothyroxine [Euthyrox] 150 mcg tablet 150 mcg PO DAILY montelukast 10 mg tablet 10 mg PO BEDTIME Discharge Orders: Discharge ED (Routine); Ordered 12/30/21 Ordered By: Javed Farley Referrals: Lindsay Roque [Primary Care Provider] - Discharge Diet: Advance as tolerated Discharge Activity: Resume usual activity Patient Instructions: COPD (Chronic Obstructive Pulmonary Disease) (ED) Coding Level of Care Code ED Attractions Associate for Nohelia Stapleton Exam Comprehensive
[2021-12-30 19:00] LABS: Basophils % 0.4 %; Eosinophils % 0.2 %; Hematocrit 42.8 % (37.0-47.0); Hemoglobin 13.5 g/dL (11.5-15.3); Lymphocytes # 1.7 10^3/uL (0.8-4.8); Lymphocytes % 16.5 %; Mean Corpuscular HGB Conc 31.5 g/dL (30.0-36.0); Mean Corpuscular Hemoglobin 28.5 pg (28.0-34.0); Mean Corpuscular Volume 90.5 fl (81-99); Monocytes % 9.9 %; Neutrophils # 7.02 10^3/uL (1.8-7.7); Neutrophils % 68.1 %; Nucleated Red Blood Cells % 0 %; Platelet Count 272 10^3/cmm (130-400); Red Blood Count 4.73 10^6/uL (4.1-5.3); Red Cell Distribution Width 14.4 % (12.1-15.1); White Blood Count 10.3 10^3/uL (4.0-10.0)
[2021-12-30 19:23] LABS: Alanine Aminotransferase 52 U/L (0-33); Albumin Level 4.8 g/dL (3.5-5.2); Alkaline Phosphatase 120 U/L (35-105); Anion Gap 16.5 (5-19); Aspartate Amino Transferase 45 U/L (0-32); Blood Urea Nitrogen 19 mg/dL (8-23); Calcium 10.1 mg/dL (8.5-10.5); Carbon Dioxide 27 mmol/L (22-29); Chloride 99 mmol/L (98-107); Globulin 3.4 g/dL (1.3-4.6); Glomerular Filtration Rate 54.8 mL/min (90-130); Glucose 102 mg/dL (65-115); Osmolality Calculated 288 mOsm/kg (285-295); Potassium 4.5 mmol/L (3.5-5.1); Sodium 138 mmol/L (136-145); Total Bilirubin 0.3 mg/dL (0.15-1.2); Total Protein 8.2 g/dL (6.6-8.7)
[2021-12-30 19:24] LABS: Troponin(5th) Baseline 22 ng/L (0-10)
[2021-12-30] MEDS: predniSONE 20 mg Tablet 40 MG PO (19:31)
--- NOTE | 2021-12-30 19:52 | ECG_ITS ---
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 Measurements Intervals [place] Rate: 69 P: 59 DE: 128 QRS: 35 QRSD: 90 T: 50 QT: 413 QTc: 444 Interpretive Statements SINUS RHYTHM Compared to ECG 05/22/2015 10:41:24 No significant changes Electronically Signed On 12-30-2021 20:50:52 CDT by Dyan Nash M.D. [id number]
--- NOTE | 2021-12-30 20:34 | ECG_ITS ---
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 Measurements Intervals [place] Rate: 69 P: 61 IN: 122 QRS: 37 QRSD: 93 T: 57 QT: 408 QTc: 439 Interpretive Statements SINUS RHYTHM Compared to ECG 12/30/2021 18:31:32 No significant changes Electronically Signed On 12-30-2021 20:51:30 CDT by Dyan Nash M.D. [id number]
[2021-12-30 21:18] LABS: Troponin 5 2HR 17.86 ng/L (0-10)
[2021-12-30 21:29] VITALS: BP 197/71; PULSE 73; RESP 19; O2SAT 98
[2021-12-30 21:32] LABS: Troponin 5 2HR Delta -4.14 ABS# (0-10)
[2021-12-30 21:49] VITALS: BP 189/69; PULSE 81; RESP 18; TEMP 37.1; O2SAT 98
== END 2021-12-30 21:51 | disposition home or self-care (01) ==
PROVIDERS: Emergency Medicine; Emergency Provider Emergency Medicine; PCP Nurse Practitioner Family
DX: J44.1 Chronic obstructive pulmonary disease with (acute) exacerbation (principal); Z87.891 Personal history of nicotine dependence; I25.10 Atherosclerotic heart disease of native coronary artery without angina pectoris; I10 Essential (primary) hypertension; E78.2 Mixed hyperlipidemia
CPT/HCPCS: 71045; 80053; 84484; 85025; 93005; 99285; J7512

== ENCOUNTER → 2022-05-02 14:21 | Outpatient (BNVA) | payer MEDICARE, MEDICAID, SELFPAY | PROVIDERS: PCP Nurse Practitioner Family; Visit Provider Nurse Practitioner Family | DX: I25.10 Atherosclerotic heart disease of native coronary artery without angina pectoris (principal); I11.9 Hypertensive heart disease without heart failure; Z87.891 Personal history of nicotine dependence | CPT/HCPCS: 99214 ==

== ENCOUNTER 2022-09-14 11:19 | Outpatient (CLI) | payer MEDICARE, MEDICAID, SELFPAY ==
--- NOTE | 2022-09-14 11:23 | MM_ITS ---
WS: [id number] Bilateral screening 3D tomosynthesis digital mammogram, 09/14/2022 Clinical Data: SCREENING Comparison: 03/25/2021, 01/10/2019, 11/26/2018, 11/21/2017, 10/29/2015, 09/30/2014, 03/09/2012, 02/14/2011, /2010 Findings: The breast parenchymal pattern shows fibroglandular tissue. No spiculated masses or clustered calcifi cations are seen. There are no secondary signs of carcinoma. There is a biopsy clip in the right [address] [place] MM/[place] [id number] Impression: 1. Negative bilateral mammogram unchanged. 2. Recommend annual screening mammograms. BIRADS: 2-Benign FOLLOW UP: 1 Year Follow-up The CAD roller checker was used.
== END 2022-09-14 11:20 | disposition home or self-care (01) ==
LOC: RAD 11:20
PROVIDERS: PCP Nurse Practitioner Family; Visit Provider Nurse Practitioner Family
DX: Z12.31 Encounter for screening mammogram for malignant neoplasm of breast (principal)
CPT/HCPCS: 77063; 77067

== ENCOUNTER → 2022-11-14 15:00 | Outpatient (BNVA) | payer MEDICARE, MEDICAID, SELFPAY | PROVIDERS: PCP Nurse Practitioner Family; Visit Provider Internal Medicine Cardiovascular Disease | DX: R06.02 Shortness of breath (principal) | CPT/HCPCS: 36415; 80048; 83880; 99214 ==

== ENCOUNTER 2022-11-17 15:26 | Outpatient (CLI) | payer MEDICARE, MEDICAID, SELFPAY ==
--- NOTE | 2022-11-17 15:45 | USCV_ITS ---
Marycarmen Costello Age: 72 Gender: F : 1950 Exam Date: 11/17/2022 15:45 Ordering Phys: Dyan Nash MD ([email or web address]) Technologist: Brian Rogers Exam Location: [facility] [place] Indication: left leg pain PROCEDURES: Venous duplex imaging was performed in only the left lower extremity. The following venous structures were evaluated: common femoral vein, profunda vein, proximal portion of the greater saphenous vein, superficial femoral vein, and the popliteal vein. In addition, the posterior tibial and peroneal trunk were evaluated. Serial compression, augmentation maneuvers, and spectral Doppler flow evaluation were performed. FINDINGS: Normal 2-D Doppler and augmentation and compressibility throughout the lower extremity venous structures. Additional imaging through the proximal calf veins also reveals no thrombus. Limited evaluation of the greater saphenous vein is patent with no thrombus. CONCLUSIONS No evidence of left lower extremity DVT. Andrey Hyatt MD (Electronically Signed) Final Date: 17 November 2022 16:51 S
== END 2022-11-17 15:27 | disposition home or self-care (01) ==
PROVIDERS: PCP Nurse Practitioner Family; Visit Provider Internal Medicine Cardiovascular Disease
DX: M79.89 Other specified soft tissue disorders (principal); M79.605 Pain in left leg
CPT/HCPCS: 93971

== ENCOUNTER → 2023-06-07 15:21 | Outpatient (BNVA) | payer MEDICARE, MEDICAID, SELFPAY | PROVIDERS: PCP Nurse Practitioner Family; Visit Provider Internal Medicine Cardiovascular Disease | DX: I25.10 Atherosclerotic heart disease of native coronary artery without angina pectoris (principal); R06.00 Dyspnea, unspecified; E03.9 Hypothyroidism, unspecified; I10 Essential (primary) hypertension; E78.5 Hyperlipidemia, unspecified; G47.33 Obstructive sleep apnea (adult) (pediatric); Z87.891 Personal history of nicotine dependence | CPT/HCPCS: 99214 ==

== ENCOUNTER → 2023-12-05 10:40 | Outpatient (BNVA) | payer MEDICARE, MEDICAID, SELFPAY | PROVIDERS: PCP Nurse Practitioner Family; Visit Provider Nurse Practitioner Family | DX: I10 Essential (primary) hypertension (principal); I25.10 Atherosclerotic heart disease of native coronary artery without angina pectoris; Z87.891 Personal history of nicotine dependence | CPT/HCPCS: 99214 ==

== ENCOUNTER → 2024-08-13 09:23 | Outpatient (BNVA) | payer MEDICARE, MEDICAID, SELFPAY | PROVIDERS: PCP Nurse Practitioner Family; Visit Provider Internal Medicine Cardiovascular Disease | DX: I25.10 Atherosclerotic heart disease of native coronary artery without angina pectoris (principal); R06.09 Other forms of dyspnea; E03.9 Hypothyroidism, unspecified; I10 Essential (primary) hypertension; E78.5 Hyperlipidemia, unspecified; G47.33 Obstructive sleep apnea (adult) (pediatric); Z87.891 Personal history of nicotine dependence | CPT/HCPCS: 99214 ==

== ENCOUNTER 2024-08-29 13:51 | Observation (INO) | payer MEDICARE, MEDICAID, SELFPAY ==
[2024-08-29] VITALS (12 sets, daily range): BP systolic 121–174; BP diastolic 50–99; PULSE 59–83; RESP 15–23; TEMP 36.6; O2SAT 92–98; BMI 30.7
--- NOTE | 2024-08-29 13:57 | ECG_ITS ---
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 Measurements Intervals [place] Rate: 67 P: 73 ME: 127 QRS: 71 QRSD: 89 T: 83 QT: 398 QTc: 423 Interpretive Statements SINUS RHYTHM MODERATE ST DEPRESSION [0.05+ mV ST DEPRESSION] Compared to ECG 02/11/2022 20:02:33 ST (T wave) deviation now present Sinus tachycardia no longer present T-wave abnormality no longer present Possible ischemia no longer present Electronically Signed On 08-29-2024 18:02:11 CDT by Dyan Nash M.D. [id number] [id number]
--- NOTE | 2024-08-29 13:57 | XR_ITS ---
WS: [id number] Portable AP upright chest, 08/29/2024 Clinical Data: chest pain Comparison: Portable chest, 12/30/2021 Findings: There is minimal atelectasis over the surface of the diaphragms. No nodules, masses or effusions are seen. The heart is normal. The pulmonary vascularity is not increased. No pneumonia or pneumothorax is seen. The aortic arch shows mild tortuosity. Monitor leads are on the chest wall. XR/XR chest 1V portable [id number] Impression: 1. Probable bilateral lower lobe atelectasis. 2. Atherosclerosis.
[2024-08-29 14:04] LABS: Basophils % 0.5 %; Eosinophils # 0.2 10^3/uL (0.0-0.8); Eosinophils % 3.7 %; Lymphocytes # 1.6 10^3/uL (0.8-4.8); Lymphocytes % 27.7 %; Mean Corpuscular HGB Conc 30.8 g/dL (30-55); Mean Corpuscular Hemoglobin 27.3 pg (27-33); Mean Corpuscular Volume 88.8 fl (85-98); Mean Platelet Volume 10.3 fL (7.4-10.4); Monocytes # 0.4 10^3/uL (0.2-0.9); Monocytes % 6.7 %; Neutrophils # 3.43 10^3/uL (1.8-7.7); Neutrophils % 60.5 %; Nucleated Red Blood Cells % 0 %; Platelet Count 184 10^3/cmm (157-399); Red Blood Count 4.39 10^6/uL (3.85-5.65); Red Cell Distribution Width 14.7 % (12.1-15.1); White Blood Count 5.67 10^3/uL (3.29-11.43)
--- NOTE | 2024-08-29 14:25 | W.ED.CHESTPA ---
HPI - Chest Pain General: Chief Complaint: Chest Pain Stated Complaint: Chest Pain Time Seen by Provider: 08/29/24 13:53 History of Present Illness: 74-year-old female with history of obesity, hypothyroidism and hypertension who presents emergency room chest pain by ambulance. Pain started about 2 hours ago. Central chest rating into her neck. Pressure. Relieved with nitroglycerin on the ambulance. Also received aspirin on the ambulance. Pain is minimal now. No known cardiac history. No cough. No fever. No abdominal pain. Related Data Home Medications ?Medication ?Instructions ?Recorded ?Confirmed omega-3 fatty acids 1,000 mg 1,000 mg PO BID 08/27/19 12/05/23 capsule (Fish Oil Concentrate) allopurinol 100 mg tablet 100 mg PO DAILY 02/19/21 12/05/23 cyanocobalamin (vitamin B-12) 1,000 mcg PO DAILY 02/19/21 12/05/23 1,000 mcg capsule ergocalciferol (vitamin D2) 1,250 1,250 mcg PO DAILY 02/19/21 12/05/23 mcg (50,000 unit) capsule levothyroxine 150 mcg tablet 150 mcg PO DAILY 07/28/21 12/05/23 (Euthyrox) metoprolol succinate 100 mg 100 mg PO DAILY 07/28/21 12/05/23 tablet,extended release 24 hr montelukast 10 mg tablet 10 mg PO BEDTIME 07/28/21 12/05/23 omeprazole 40 mg capsule,delayed 40 mg PO DAILY 07/28/21 12/05/23 release amlodipine 5 mg tablet 5 mg PO DAILY 06/07/23 12/05/23 Previous Rx's ?Medication ?Instructions ?Recorded cholecalciferol (vitamin D3) 1,250 See Rx Instructions .Route 03/23/20 mcg (50,000 unit) capsule (Optimal .COMPLEX #4 caps D3) atorvastatin 20 mg tablet See Rx Instructions .Route 08/02/20 .COMPLEX #90 tabs night splint #1 ea 04/14/21 duloxetine 60 mg capsule,delayed 60 mg PO DAILY 90 days #90 caps 06/16/21 release trazodone 100 mg tablet 100 mg PO .HS #90 tabs 06/16/21 nitroglycerin 0.4 mg sublingual 0.4 mg sublingual Q5M PRN chest 07/15/21 tablet pain 30 days #30 tabs losartan 100 mg tablet 100 mg PO DAILY #90 tabs 11/04/21 prednisone 50 mg tablet 50 mg PO DAILY #5 tabs 12/30/21 isosorbide mononitrate 30 mg 30 mg PO DAILY #90 tabs 06/02/22 tablet,extended release 24 hr Allergies Allergy/AdvReac Type Severity Reaction Status Date / Time adhesive tape Allergy Intermediate rash Verified 08/13/24 09:45 codeine Allergy Mild rash Verified 08/13/24 09:45 hydromorphone (From Dilaudid) Allergy Mild sick Verified 08/13/24 09:45 ibuprofen Allergy Mild sick Verified 08/13/24 09:45 Penicillins AdvReac ADR-Diarrhe Verified 08/13/24 09:45 a Review of Systems Narrative: Constitutional symptoms: Negative except as documented in HPI. Skin symptoms: Negative except as documented in HPI. Eye symptoms: Negative except as documented in HPI. ENMT symptoms: Negative except as documented in HPI. Respiratory symptoms: Negative except as documented in HPI. Cardiovascular symptoms: Negative except as documented in HPI. Gastrointestinal symptoms: Negative except as documented in HPI. Genitourinary symptoms: Negative except as documented in HPI. Musculoskeletal symptoms: Negative except as documented in HPI. Neurologic symptoms: Negative except as documented in HPI. Psychiatric symptoms: Negative except as documented in HPI. Endocrine symptoms: Negative except as documented in HPI. PFSH ED PFSH: Medical History Atherosclerosis of coronary artery Chest pain Acute bacterial sinusitis Blepharospasm Patient was treated by Dr. Carl 12/2018 with Botox. Vertigo Sinusitis Lower respiratory infection Otitis media Otitis media Nicotine dependence, cigarettes, in remission Sleep apnea, unspecified Major depressive disorder, recurrent severe without psychotic features Post-traumatic stress disorder, chronic Environmental and seasonal allergies Vitamin D deficiency GERD (gastroesophageal reflux disease) Anxiety and depression Intervertebral disc disorder with radiculopathy of lumbosacral region DDD (degenerative disc disease), thoracolumbar Multiple lung nodules Mixed hyperlipidemia Hypothyroid Patient is compliant with thyroid medications and regular lab visits as needed. Arachnoid cyst Left hip pain Essential (primary) hypertension Insomnia Surgical History Status post laminectomy with spinal fusion 2015 [place]: L4-L5, L5-S1 lumbar decompression/fusion/fixation H/O bladder repair surgery History of brain shunt 1998 [facility]. Right cerebral shunt tube: Arachnoid cyst History of hip surgery right hip replacement Family History Father Cancer Mother Heart disease CAD (coronary artery disease), Onset Age: 60 Chronic kidney disease (CKD) Lung disease Family/Other Diabetes Grandmother Lung disease Brother Stroke Denies family history of Clotting disorder Dementia Suicide Anesthesia complication Bleeding disorder Social History Smoking and tobacco/nicotine status: former use of tobacco/nicotine Alcohol intake: never Substance/Drug Use: never Household members: none Marital status: Current occupational status: disabled Physical Exam Narrative: EXAM NARRATIVE: General: Alert, no acute distress. Skin: Warm, dry. Head: Normocephalic, atraumatic. Neck: Supple, trachea midline. Eye: Extraocular movements are intact. Ears, nose, mouth and throat: mucosa moist. Cardiovascular: Regular, Normal peripheral perfusion. Respiratory: Lungs are clear to auscultation, respirations are non-labored, breath sounds are equal, Symmetrical chest wall expansion. Gastrointestinal: Soft, Nontender, Non distended Musculoskeletal: Normal ROM, no deformity. Neurological: Alert and oriented, No focal neurological deficit observed. Psychiatric: Cooperative, appropriate mood & affect. Course Vital Signs: Vital signs: Vital Signs Temperature 97.9 F 08/29/24 13:51 Pulse Rate 63 08/29/24 17:00 Respiratory Rate 18 08/29/24 17:00 Blood Pressure 158/79 08/29/24 17:00 Pulse Oximetry 98 08/29/24 17:00 Oxygen Delivery Me thod Room Air 08/29/24 13:51 MDM - Chest Pain Medical Decision Making Differential diagnosis for patient with chest pain includes but is not limited to and based on the above HPI, review of systems and physical exam: Pneumonia. unstable angina. angina. Acute coronary syndrome / LA. Pulmonary embolism. Costochondritis / musculoskeletal. Pleurisy. Pericarditis. Esophageal spasm. Pancreatis. Cholecystitis. Orders placed to evaluate differential diagnosis based on the above differential, HPI and physical exam EKG: Time 1355. Rate 67. Normal sinus rhythm, moderate ST depression with no elevation., no ectopy, normal [place] & QRS intervals, This was reviewed and interpreted by myself the ER physician at 1400. Chest x-ray: Bilateral lower lobe atelectasis. No infiltrate. No pneumothorax. This was reviewed and interpreted by myself the emergency room physician. I also reviewed the radiology report. Lab Review: Laboratory results were reviewed and interpreted by myself the emergency room physician. No leukocytosis. No anemia. BUN and creatinine at baseline at 22/1.0. Initial cardiac marker was 12 repeat was unchanged. I reviewed the patient's medical record. Reexamination: Patient remained stable. No increased work of breathing. No altered mental status. No focal motor deficits. No recurrence of chest pain. I discussed that her heart score was elevated at 4 and that she needed to be observed and she agrees. Consultation: I spoke with Dr. Roberts who is on-call for the hospital service who agrees to admission to observation. Assessment and plan: Chest pain -I discussed the patient with the hospitalist on-call who is admitting the patient. - Discussed findings and plan with patient. Answered any questions. - All laboratory values were reviewed and interpreted personally by myself, the ER physician - All imaging was reviewed and interpreted personally by myself, the ER physician. - Evaluation and treatment of this problem were appropriate in the emergency setting Lab Data 08/29/24 13:56 08/29/24 13:56 Radiology Impressions Chest X-Ray 08/29/24 13:57 Impression: 1. Probable bilateral lower lobe atelectasis. 2. Atherosclerosis. Laboratory Results WBC 5.67 10^3/uL (3.29-11.43) 08/29/24 13:56 RBC 4.39 10^6/uL (3.85-5.65) 08/29/24 13:56 Hgb 12.00 g/dL (11.27-16.99) 08/29/24 13:56 Hct 39.0 % (36-47) 08/29/24 13:56 MCV 88.8 fl (85-98) 08/29/24 13:56 MCH 27.3 pg (27-33) 08/29/24 13:56 MCHC 30.8 g/dL (30-55) 08/29/24 13:56 RDW 14.7 % (12.1-15.1) 08/29/24 13:56 Plt Count 184 10^3/cmm (157-399) 08/29/24 13:56 MPV 10.3 fL (7.4-10.4) 08/29/24 13:56 Neut % (Auto) 60.5 % 08/29/24 13:56 Lymph % (Auto) 27.7 % 08/29/24 13:56 Glenn % (Auto) 6.7 % 08/29/24 13:56 Eos % (Auto) 3.7 % 08/29/24 13:56 Baso % (Auto) 0.5 % 08/29/24 13:56 Neut # (Auto) 3.43 10^3/uL (1.8-7.7) 08/29/24 13:56 Lymph # (Auto) 1.6 10^3/uL (0.8-4.8) 08/29/24 13:56 Glenn # (Auto) 0.4 10^3/uL (0.2-0.9) 08/29/24 13:56 Eos # (Auto) 0.2 10^3/uL (0.0-0.8) 08/29/24 13:56 Baso # (Auto) 0.0 10^3/uL (0.0-0.1) 08/29/24 13:56 Nucleated RBC % (auto) 0 % 08/29/24 13:56 Nucleated RBCs # 0.0 /100WBC 08/29/24 13:56 Sodium 141 mmol/L (136-145) 08/29/24 13:56 Potassium 4.4 mmol/L (3.5-5.1) 08/29/24 13:56 Chloride 103 mmol/L (98-107) 08/29/24 13:56 Carbon Dioxide 26 mmol/L (22-29) 08/29/24 13:56 Anion Gap 16.4 (5-19) 08/29/24 13:56 BUN 22 mg/dL (8-23) 08/29/24 13:56 Creatinine 1.0 mg/dL (0.5-0.9) H 08/29/24 13:56 GFR Calculation Not Reportable 08/29/24 13:56 Glucose 87 mg/dL (65-115) 08/29/24 13:56 Calculated Osmolality 295 mOsm/kg (285-295) 08/29/24 13:56 Calcium 10.1 mg/dL (8.5-10.5) 08/29/24 13:56 Total Bilirubin 0.6 mg/dL (0.15-1.2) 08/29/24 13:56 AST 14 U/L (0-32) 08/29/24 13:56 ALT 13 U/L (0-33) 08/29/24 13:56 Alkaline Phosphatase 141 U/L (35-105) H 08/29/24 13:56 Troponin T Baseline 11 ng/L (0-10) H 08/29/24 13:56 Troponin T 120 Minute 11.31 ng/L (0-10) H 08/29/24 16:21 Delta Troponin T 0.31 ABS# (0-10) 08/29/24 16:21 NT-Pro-B Natriuret Pep 149 pg/mL (0-125) H 08/29/24 13:56 Total Protein 7.6 g/dL (6.6-8.7) 08/29/24 13:56 Albumin 4.5 g/dL (3.5-5.2) 08/29/24 13:56 Globulin 3.1 g/dL (1.3-4.6) 08/29/24 13:56 Urine Color Yellow (Yellow) 08/29/24 14:08 Urine Appearance Clear (CLEAR) 08/29/24 14:08 Urine pH 7.5 (5-7) 08/29/24 14:08 Ur Specific [place] 1.004 (1.005-1.030) L 08/29/24 14:08 Urine Protein Negative (Negative) 08/29/24 14:08 Urine Glucose (UA) Negative (Normal) 08/29/24 14:08 Urine Ketones Negative (Negative) 08/29/24 14:08 Urine Blood Negative (Negative) 08/29/24 14:08 Urine Nitrate Negative (Negative) 08/29/24 14:08 Urine Bilirubin Negative (Negative) 08/29/24 14:08 Urine Urobilinogen 0.2 mg/dL (Negative) 08/29/24 14:08 Ur Leukocyte Esterase Trace (Negative) A 08/29/24 14:08 Urine RBC 0-2 /hpf (0-2) 08/29/24 14:08 Urine WBC 0-5 /hpf (0-5) 08/29/24 14:08 Ur Squamous Epith Cells 0-5 /hpf (0-5) 08/29/24 14:08 Amorphous Sediment Not Reportable 08/29/24 14:08 Urine Bacteria None seen /hpf (NONE) 08/29/24 14:08 Hyaline Casts 0-4 /lpf H 08/29/24 14:08 All radiology interpretation(s) finalized by discharge Clincial Decision Support The following clinical decision support tools were used to aid in care of the patient HEART Score -> History: Slightly Suspicous, EKG: Non-specific Changes, Age: 65 or more yrs, Risk Factors: 1 or 2 Risk Factors, Troponin: Baseline Trop <16 ng/L. Resulting HEART Score: 4. Discharge Plan Discharge Patient Disposition: Placed in Observation Clinical Impression: Chest pain Coding Level of Care Code ED [employer] Recorder for Nohelia Stapleton
[2024-08-29 14:37] LABS: Troponin(5th) Baseline 11 ng/L (0-10)
[2024-08-29 14:45] LABS: Bilirubin Urine Negative (Negative); Blood Urine Negative (Negative); Glucose Urine UA Negative (Normal); Ketones Urine Negative (Negative); Leukocyte Esterase Urine Trace (Negative); Nitrate Urine Negative (Negative); Protein Urine Negative (Negative); Specific Gravity, Urine 1.004 (1.005-1.030); Urine Appearance Clear (CLEAR); Urine Color Yellow (Yellow); Urobilinogen Urine 0.2 mg/dL (Negative); pH Urine 7.5 (5-7)
[2024-08-29 14:47] LABS: Alanine Aminotransferase 13 U/L (0-33); Albumin Level 4.5 g/dL (3.5-5.2); Alkaline Phosphatase 141 U/L (35-105); Anion Gap 16.4 (5-19); Aspartate Amino Transferase 14 U/L (0-32); Blood Urea Nitrogen 22 mg/dL (8-23); Calcium 10.1 mg/dL (8.5-10.5); Carbon Dioxide 26 mmol/L (22-29); Chloride 103 mmol/L (98-107); Creatinine Clr Calc Pharmacy 65.1729; Globulin 3.1 g/dL (1.3-4.6); Glucose 87 mg/dL (65-115); NT Pro B Type Natriuretic Pept 149 pg/mL (0-125); Osmolality Calculated 295 mOsm/kg (285-295); Potassium 4.4 mmol/L (3.5-5.1); Sodium 141 mmol/L (136-145); Total Bilirubin 0.6 mg/dL (0.15-1.2); Total Protein 7.6 g/dL (6.6-8.7)
[2024-08-29 14:51] LABS: Bacteria Urine None Seen /hpf; Hyaline Casts Urine 0-4 /lpf; RBC Urine 0-2 /hpf (0-2); Squamous Epithelial Cell Urine 0-5 /hpf (0-5); WBC Urine 0-5 /hpf (0-5)
[2024-08-29 17:05] LABS: Troponin 5 2HR 11.31 ng/L (0-10); Troponin 5 2HR Delta 0.31 ABS# (0-10)
--- NOTE | 2024-08-29 18:03 | PM.HP ---
Providers/Chief Complaint Admitting Physician: Tl Galindo MD Primary Care Provider: Lindsay Roque Chief Complaint: Chest Pain History of Present Illness This is a 74-year-old female with a past medical history of heart disease, hypertension, dyslipidemia, ADA on CPAP, GERD, who presents to [facility] for chest pain. Patient reports substernal chest pain radiating up into her neck, radiating down right arm, denies any shortness of breath, no fevers, no chills, denies any recent fatigue, malaise, no shortness of breath exertion, no orthopnea, no paroxysmal nocturnal dyspnea Review of Systems Const: Denies: fever(s) Card: Reports: chest pain Resp: Denies: dyspnea GI: Denies: abdominal pain Medications/Allergies Home Medications ?Medication ?Instructions ?Recorded ?Confirmed ?Last Taken ?Type omega-3 fatty acids 1,000 mg 1,000 mg PO BID 08/27/19 12/05/23 07/29/21 06:00 History capsule (Fish Oil Concentrate) cholecalciferol (vitamin D3) 1,250 See Rx Instructions .Route 03/23/20 12/05/23 07/29/21 06:00 Rx mcg (50,000 unit) capsule (Optimal .COMPLEX #4 caps D3) atorvastatin 20 mg tablet See Rx Instructions .Route 08/02/20 12/05/23 07/28/21 18:00 Rx .COMPLEX #90 tabs allopurinol 100 mg tablet 100 mg PO DAILY 02/19/21 12/05/23 07/29/21 06:00 History cyanocobalamin (vitamin B-12) 1,000 mcg PO DAILY 02/19/21 12/05/23 07/29/21 06:00 History 1,000 mcg capsule ergocalciferol (vitamin D2) 1,250 1,250 mcg PO DAILY 02/19/21 12/05/23 07/29/21 06:00 History mcg (50,000 unit) capsule night splint #1 ea 04/14/21 12/05/23 07/29/21 06:00 Rx duloxetine 60 mg capsule,delayed 60 mg PO DAILY 90 days #90 caps 06/16/21 12/05/23 07/29/21 06:00 Rx release trazodone 100 mg tablet 100 mg PO .HS #90 tabs 06/16/21 12/05/23 07/29/21 06:00 Rx nitroglycerin 0.4 mg sublingual 0.4 mg sublingual Q5M PRN chest 07/15/21 12/05/23 Unknown Rx tablet pain 30 days #30 tabs levothyroxine 150 mcg tablet 150 mcg PO DAILY 07/28/21 12/05/23 07/29/21 06:00 History (Euthyrox) metoprolol succinate 100 mg 100 mg PO DAILY 07/28/21 12/05/23 07/29/21 06:00 History tablet,extended release 24 hr montelukast 10 mg tablet 10 mg PO BEDTIME 07/28/21 12/05/23 07/29/21 06:00 History omeprazole 40 mg capsule,delayed 40 mg PO DAILY 07/28/21 12/05/23 07/29/21 06:00 History release losartan 100 mg tablet 100 mg PO DAILY #90 tabs 11/04/21 12/05/23 Unknown Rx prednisone 50 mg tablet 50 mg PO DAILY #5 tabs 12/30/21 12/05/23 Unknown Rx isosorbide mononitrate 30 mg 30 mg PO DAILY #90 tabs 06/02/22 12/05/23 Unknown Rx tablet,extended release 24 hr amlodipine 5 mg tablet 5 mg PO DAILY 06/07/23 12/05/23 Unknown History Allergies Allergy/AdvReac Type Severity Reaction Status Date / Time adhesive tape Allergy Intermediate rash Verified 08/13/24 09:45 codeine Allergy Mild rash Verified 08/13/24 09:45 hydromorphone (From Dilaudid) Allergy Mild sick Verified 08/13/24 09:45 ibuprofen Allergy Mild sick Verified 08/13/24 09:45 Penicillins AdvReac ADR-Diarrhe Verified 08/13/24 09:45 a PFSH Acute PFSH: Medical History Atherosclerosis of coronary artery Chest pain Acute bacterial sinusitis Blepharospasm Patient was treated by Dr. Carl 12/2018 with Botox. Vertigo Sinusitis Lower respiratory infection Otitis media Otitis media Nicotine dependence, cigarettes, in remission Sleep apnea, unspecified Major depressive disorder, recurrent severe without psychotic features Post-traumatic stress disorder, chronic Environmental and seasonal allergies Vitamin D deficiency GERD (gastroesophageal reflux disease) Anxiety and depression Intervertebral disc disorder with radiculopathy of lumbosacral region DDD (degenerative disc disease), thoracolumbar Multiple lung nodules Mixed hyperlipidemia Hypothyroid Patient is compliant with thyroid medications and regular lab visits as needed. Arachnoid cyst Left hip pain Essential (primary) hypertension Insomnia Surgical History Status post laminectomy with spinal fusion 2015 [place]: L4-L5, L5-S1 lumbar decompression/fusion/fixation H/O bladder repair surgery History of brain shunt 1998 [facility]. Right cerebral shunt tube: Arachnoid cyst History of hip surgery right hip replacement Family History Father Cancer Mother Heart disease CAD (coronary artery disease), Onset Age: 60 Chronic kidney disease (CKD) Lung disease Family/Other Diabetes Grandmother Lung disease Brother Stroke Denies family history of Clotting disorder Dementia Suicide Anesthesia complication Bleeding disorder Social History Smoking and tobacco/nicotine status: former use of tobacco/nicotine Alcohol intake: never Substance/Drug Use: never Household members: none Marital status: Current occupational status: disabled Vitals/I&O/Wt Last Vital Signs Temp 97.9 F 08/29/24 13:51 Pulse 63 08/29/24 17:00 Resp 18 08/29/24 17:00 BP 158/79 08/29/24 17:00 Pulse Ox 98 08/29/24 17:00 O2 Del Method Room Air 08/29/24 13:51 Weight last 48 hrs Weight 99.79 kg Physical Exam Const: COMMON NORMALS: no acute distress and patient oriented x3 HENMT: COMMON NORMALS: normocephalic HEAD & SCALP: normocephalic Eye: COMMON NORMALS: Equal, round and reactive pupils present Neck/C-Spine: COMMON NORMALS: no JVD Lymph: LYMPHATIC: no lymphadenopathy noted Resp: COMMON NORMALS: normal respiratory effort, No retractions, No use of accessory muscles and clear to auscultation bilaterally AUSCULTATION: clear to auscultation bilaterally Cardio: COMMON NORMALS: regular rate, regular rhythm, S1 normal heart sound present and S2 normal heart sound present RATE: regular rate RHYTHM: regular rhythm HEART SOUNDS: S1 normal heart sound present and S2 normal heart sound present GI: COMMON NORMALS: Normal to inspection, nondistended, normoactive bowel sounds present, Soft to palpation and non-tender Extremity: COMMON NORMALS: no calf tenderness and no pedal edema Neuro: COMMON NORMALS: patient oriented x3, CN's II-XII intact bilaterally and moves all extremities Psych: COMMON NORMALS: mental status grossly normal Data 08/29/24 13:56 08/29/24 13:56 A&P Assessment and plan (1) Chest pain: Plan Chest pain -cath in 2021 - Left main is a medium caliber vessel with no significant stenotic lesions. * The left anterior descending artery is a medium caliber vessel which appears to wrap around the LV apex minimally. The proximal and mid segment of the artery was found to have mild diffuse intimal irregularities. No significant stenotic lesions were seen. * The left circumflex artery is a medium caliber vessel which was found to be bifurcating at the mid segment. One of the bifurcation branches was found to have an ostial 30% narrowing. No other significant stenotic lesions were seen. * The right coronary artery is a medium caliber dominant vessel which was found to have some minimal intimal irregularities in the distal segment. No significant stenotic lesions were noted. Plan - Admit to cardiac stepdown unit - Aspirin, statin, beta-bertram -Nitro as needed for chest pain - Serial EKGs, serial troponins, telemetry monitoring - Monitor troponin trend - Cardiac echo - N.p.o. midnight, for cardiac stress test tomorrow morning PDMP PDMP Reviewed: Not Reviewed Attestations Medical Necessity Statement*: Patient requires hospitalization, outpatient with observation for chest pain Diagnoses Chest pain R07.9
--- NOTE | 2024-08-29 18:06 | PC.NURSE ---
per Dr. Galindo, pt okay to eat, provided pt with Diet Dr. Negro, pt's family getting pt food.
--- NOTE | 2024-08-29 20:05 | ECG_ITS ---
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 Measurements Intervals [place] Rate: 63 P: 38 ND: 142 QRS: 76 QRSD: 93 T: 82 QT: 416 QTc: 428 Interpretive Statements SINUS RHYTHM Compared to ECG 08/29/2024 13:55:57 ST (T wave) deviation no longer present Electronically Signed On 08-30-2024 16:33:48 CDT by Dyan Nash M.D. [email or web address]
[2024-08-30] VITALS (10 sets, daily range): BP systolic 100–156; BP diastolic 52–67; PULSE 57–79; RESP 16–20; TEMP 36.7–37; O2SAT 91–96; BMI 31.1
--- NOTE | 2024-08-30 | ECG_ITS ---
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 The perfusion scan will be documented separately. DATA: Baseline heart rate was 61 beats per minute. Baseline blood pressure was 155/84 millimeters of mercury. Target heart rate was 147. Maximum heart rate achieved was 87. which was 59 % of the predicted target heart rate. Maximum blood pressure was 158/84 millimeters of mercury. The reason for ending the test was completion of protocol. The patient did not experience any symptoms. ELECTROCARDIOGRAM: BASELINE: Sinus rhythm. Normal axis. Otherwise, no ST-T changes suggestive of ischemia noted. No arrhythmia noted. EXERCISE: After Lexiscan injection, no ST-T changes suggestive of ischemic noted. No arrhythmia noted. CONCLUSION: Please note due to baseline abnormality of the EKG specificity and sensitivity of the EKG portion of LexiScan MIBI stress test will be low 1. EKG not suggestive of ischemia 2. Lexiscan injection unremarkable. 3. Perfusion scan will be documented separately. Electronically Signed On 09-11-2024 22:35:26 CDT by GERARDO MANCILLA [email or web address]
--- NOTE | 2024-08-30 01:01 | USCV_ITS ---
Marycarmen Costello Age: 74 Gender: F : 1950 Exam Date: 08/30/2024 01:32 Ordering Phys: Tl Galindo MD Technologist: KYREE [place] [facility] [place] SOB, hx CAD, HTN, HL, ADA, CPAP BP: 135 / 59 HR: 61 Rhythm: Sinus Technical Quality: Adequate MEASUREMENTS (Male / Female) Normal Values 2D ECHO LV Diastolic Diameter PLAX 3.2 cm 4.2 - 5.9 / 3.9 - 5.3 cm IVS Diastolic Thickness 1.5 cm 0.6 - 1.0 / 0.6 - 0.9 cm IVS Systolic Thickness 1.9 cm LVPW Diastolic Thickness 1.2 cm 0.6 - 1.0 / 0.6 - 0.9 cm LVPW Systolic Thickness 1.5 cm LVOT Diameter 2.0 cm LV Ejection Fraction 2D Teich 63.6 % LV Ejection Fraction MOD 4C 61.0 % LV Ejection Fraction MOD 2C 64.5 % LV Ejection Fraction 2C AL 63.9 % LA Diameter 3.2 cm Aorta at Sinotubular Diameter 2.6 cm IVC Diameter 1.1 cm M-MODE LA Ao Ratio MM 1.4 AV Cusp Separation MM 1.9 cm DOPPLER AV Peak Velocity 169.0 cm/s LVOT Peak Velocity 110.0 cm/s AV Area Cont Eq vti 2.6 cm squared AV Area Cont Eq pk 2.1 cm squared MV Peak Velocity 137.0 cm/s MV Area PHT 2.4 cm squared Mitral E to A Ratio 0.8 TV Peak E Velocity 52.0 cm/s PV Peak Velocity 82.0 cm/s FINDINGS Left Ventricle Normal left ventricular size, systolic function and wall thickness, with no regional wall motion abnormalities. Left ventricular ejection fraction is estimated at 60 %. Grade I/IV diastolic dysfunction (abnormal relaxation filling pattern), normal to mildly elevated filling pressures. Right Ventricle The right ventricle is normal in size and function. Right Atrium The right atrium is normal in size. Left Atrium The left atrium is normal in size. Mitral Valve Mildly thickened mitral valve. Mild mitral annular calcification. No mitral valve stenosis. Trace mitral valve regurgitation. Aortic Valve Structurally normal aortic valve without significant sclerosis or stenosis. There is no aortic regurgitation. Tricuspid Valve Structurally normal tricuspid valve without significant stenosis or regurgitation. Pulmonary artery systolic pressure is normal. Pulmonic Valve Mild pulmonary valve regurgitation. Pericardium Normal pericardium without effusion. Aorta Normal ascending aorta dimension. IVC The inferior vena cava appears normal. CONCLUSIONS Normal left ventricular size, systolic function and wall thickness, with no regional wall motion abnormalities. Left ventricular ejection fraction is estimated at 60 %. Grade I/IV diastolic dysfunction (abnormal relaxation filling pattern), normal to mildly elevated filling pressures. There is no pericardial effusion. No significant valve abnormalities. Right atrial pressure is around 5 m of mercury. Angelita Shine MD (Electronically Signed) Final Date: 01 Sep 2024 15:15 S
--- NOTE | 2024-08-30 01:01 | NMCV_ITS ---
NM americo perf SPECT r/s* [id number] Marycarmen Costello Age: 74 Gender: F : 1950 Exam Date: 08/30/2024 06:27 Ordering Phys: Tl Galindo MD Technologist: MICHAEL Cristina Exam Location: [facility] Indications: cp STRESS TEST Please see separate stress test report in [facility] for full findings IMAGE PROTOCOL Rest/Stress 1 Lexiscan Day Radiopharmaceutical Dose (mCi) Administration Site Administered by Rest: Tc-99m 10.7 IV Natalie Queen, SUB ARC OPERATOR Sestamibi Stress:Tc-99m 32.4 IV Natalie Taverase, SUB ARC OPERATOR Sestamibi Rest: 30-Aug-2024 60 Discovery 630 Stress: 30-Aug-2024 30 Discovery 630 0.4mg Lexiscan. Supine position only as patient was unable to lay prone. SPECT RESULTS Technical Quality: Good Raw Data Analysis: Normal Image Corrections: No attenuation or motion correction applied Summed Stress Score: 0 Summed Rest Score: 1 Summed Difference Score: 0 PERFUSION FINDINGS SPECT images demonstrate homogeneous tracer distribution throughout the myocardium. FUNCTIONAL RESULTS (calculated via Gated SPECT) Stress Image LV EF (%): 93 Stress EDV (mL):72 TID: 0.89 Stress ESV (mL):5 FUNCTIONAL FINDINGS: There is normal left ventricular systolic function. IMPRESSIONS 1. Normal myocardial perfusion imaging with no evidence of ischemia 2. LV systolic function is normal Erick Guy MD (Electronically Signed) Final Date: 30 Aug 2024 08:37 S
[2024-08-30] MEDS: ATORVASTATIN 10 MG TABLET 20 MG PO (01:17)
[2024-08-30] MEDS: aspirin 81 mg EC Tablet PO ×2 (01:18→08:29)
[2024-08-30] MEDS: montelukast sodium 10 mg Tablet PO (01:18)
[2024-08-30] MEDS: trazodone 100 mg Tablet PO (01:18)
[2024-08-30] MEDS: levothyroxine 150 mcg Tablet PO (06:01)
[2024-08-30 06:33] LABS: Basophils % 0.4 %; Eosinophils # 0.2 10^3/uL (0.0-0.8); Eosinophils % 3.5 %; Hematocrit 35.4 % (36-47); Lymphocytes # 1.2 10^3/uL (0.8-4.8); Lymphocytes % 23.9 %; Mean Corpuscular HGB Conc 31.4 g/dL (30-55); Mean Corpuscular Hemoglobin 27.8 pg (27-33); Mean Corpuscular Volume 88.5 fl (85-98); Monocytes # 0.4 10^3/uL (0.2-0.9); Monocytes % 7.8 %; Neutrophils # 3.29 10^3/uL (1.8-7.7); Neutrophils % 63.8 %; Nucleated Red Blood Cells % 0 %; Platelet Count 164 10^3/cmm (157-399); Red Cell Distribution Width 14.6 % (12.1-15.1); White Blood Count 5.15 10^3/uL (3.29-11.43)
[2024-08-30 06:50] LABS: Alanine Aminotransferase 11 U/L (0-33); Albumin Level 3.8 g/dL (3.5-5.2); Alkaline Phosphatase 127 U/L (35-105); Anion Gap 15.3 (5-19); Aspartate Amino Transferase 17 U/L (0-32); Blood Urea Nitrogen 19 mg/dL (8-23); Calcium 9.6 mg/dL (8.5-10.5); Carbon Dioxide 24 mmol/L (22-29); Chloride 104 mmol/L (98-107); Creatinine Clr Calc Pharmacy 65.0859; Globulin 3.2 g/dL (1.3-4.6); Glucose 94 mg/dL (65-115); Magnesium 1.7 mg/dL (1.7-2.3); Osmolality Calculated 290 mOsm/kg (285-295); Phosphorus 3.9 mg/dL (2.5-4.5); Potassium 4.3 mmol/L (3.5-5.1); Sodium 139 mmol/L (136-145); Total Bilirubin 0.7 mg/dL (0.15-1.2)
[2024-08-30 07:02] LABS: Chol HDL Ratio 3.33 mg/dL (0.0-4.40); Cholesterol 110 mg/dL (0-200); HDL Cholesterol 33 mg/dL (60-100); LDL Cholesterol Calculated 52 mg/dL (50-129); LDL HDL Ratio 1.58 RATIO (0.00-3.22); Thyroid Stimulating Hormone 0.44 uIU/mL (0.27-4.20); Triglycerides 124 mg/dL (0-150)
[2024-08-30] MEDS: regadenoson 0.4 Mg/5 ml Syringe IVP (07:22)
[2024-08-30] MEDS: pantoprazole 40 mg SDV IVP (08:28)
[2024-08-30] MEDS: omega-3 fatty acids 1,000 mg Capsule 1000 MG PO (08:29)
[2024-08-30] MEDS: metoprolol succinate ER (24 HR) 100 mg Tablet PO (08:29)
[2024-08-30] MEDS: duloxetine 60 mg Capsule PO (08:29)
[2024-08-30] MEDS: enoxaparin 40 mg/0.4 mL Syringe SUBCUT (08:29)
[2024-08-30] MEDS: allopurinol 100 mg Tablet PO (08:29)
[2024-08-30] MEDS: amlodipine 5 mg Tablet PO (08:29)
[2024-08-30] MEDS: isosorbide mononitrate ER 30 mg Tablet PO (08:29)
[2024-08-30] MEDS: losartan 50 mg Tablet 100 MG PO (08:29)
--- NOTE | 2024-08-30 09:12 | PM.DCS ---
Discharge Providers Date of Admission: 08/30/24 01:10 Date of Discharge: August 30, 2024 Attending Provider at Admission: Tl Galindo MD Attending Provider at Discharge: Tl Galindo MD Primary Care Provider: Lindsay Roque Diagnoses at Discharge Discharge Diagnosis (1) Chest pain: Status: Acute Reason for Visit Reason for Visit: Chest Pain Hospital Course Hospital Course This is a 74-year-old female with a past medical history of heart disease, hypertension, dyslipidemia, ADA on CPAP, GERD, who presents to [facility] for chest pain. Patient reports substernal chest pain radiating up into her neck, radiating down right arm, denies any shortness of breath, no fevers, no chills, denies any recent fatigue, malaise, no shortness of breath exertion, no orthopnea, no paroxysmal nocturnal dyspnea Patient was admitted to [facility] for chest pain, no significant delta troponin, no recurrent chest pain during her hospitalization stress test IMPRESSIONS 1. Normal myocardial perfusion imaging with no evidence of ischemia 2. LV systolic function is normal - Overall no recurrent chest pain, no significant shortness of breath - Discharged on aspirin, statin, metoprolol, Imdur - Nitro as needed for chest pain - Patient was advised if she were to have any recurrent chest pain to go to the emergency room Physical Exam Const: COMMON NORMALS: no acute distress and patient oriented x3 Resp: COMMON NORMALS: normal respiratory effort, No retractions, No use of accessory muscles and clear to auscultation bilaterally AUSCULTATION: clear to auscultation bilaterally Cardio: COMMON NORMALS: regular rate, regular rhythm, S1 normal heart sound present and S2 normal heart sound present RATE: regular rate RHYTHM: regular rhythm HEART SOUNDS: S1 normal heart sound present and S2 normal heart sound present GI: COMMON NORMALS: Normal to inspection, nondistended, normoactive bowel sounds present and non-tender Extremity: COMMON NORMALS: no pedal edema Neuro: COMMON NORMALS: patient oriented x3 Psych: COMMON NORMALS: mental status grossly normal Discharge Data Studies Completed and Pending Completed Studies During Hospitalization Category Date Time Status Sestamibi Stress Test Request Routine Exams 08/30/24 01:01 Draft XR chest 1V portable [id number] Stat Exams 08/29/24 13:57 Completed NM americo perf SPECT r/s* [id number] Routine Nuc Med 08/30/24 01:01 Completed Pending at discharge Category Date Time Status Complete Blood Count w/Auto AM LABS Lab 08/31/24 04:00 Ordered Complete Blood Count w/Auto AM LABS Lab 09/01/24 04:00 Ordered Comprehensive Metabolic Panel AM LABS Lab 08/31/24 04:00 Ordered Comprehensive Metabolic Panel AM LABS Lab 09/01/24 04:00 Ordered Magnesium AM LABS Lab 08/31/24 04:00 Ordered Magnesium AM LABS Lab 09/01/24 04:00 Ordered Phosphorus AM LABS Lab 08/31/24 04:00 Ordered Phosphorus AM LABS Lab 09/01/24 04:00 Ordered CV. echo complete* [id number] Routine Ultrasound 08/30/24 01:01 Taken Radiology Impressions Chest X-Ray 08/29/24 13:57 Impression: 1. Probable bilateral lower lobe atelectasis. 2. Atherosclerosis. Laboratory Results WBC 5.15 10^3/uL (3.29-11.43) 08/30/24 06:20 RBC 4.00 10^6/uL (3.85-5.65) 08/30/24 06:20 Hgb 11.10 g/dL (11.27-16.99) L 08/30/24 06:20 Hct 35.4 % (36-47) L 08/30/24 06:20 MCV 88.5 fl (85-98) 08/30/24 06:20 MCH 27.8 pg (27-33) 08/30/24 06:20 MCHC 31.4 g/dL (30-55) 08/30/24 06:20 RDW 14.6 % (12.1-15.1) 08/30/24 06:20 Plt Count 164 10^3/cmm (157-399) 08/30/24 06:20 MPV 10.0 fL (7.4-10.4) 08/30/24 06:20 Neut % (Auto) 63.8 % 08/30/24 06:20 Lymph % (Auto) 23.9 % 08/30/24 06:20 [place] % (Auto) 7.8 % 08/30/24 06:20 Eos % (Auto) 3.5 % 08/30/24 06:20 Baso % (Auto) 0.4 % 08/30/24 06:20 Neut # (Auto) 3.29 10^3/uL (1.8-7.7) 08/30/24 06:20 Lymph # (Auto) 1.2 10^3/uL (0.8-4.8) 08/30/24 06:20 [place] # (Auto) 0.4 10^3/uL (0.2-0.9) 08/30/24 06:20 Eos # (Auto) 0.2 10^3/uL (0.0-0.8) 08/30/24 06:20 Baso # (Auto) 0.0 10^3/uL (0.0-0.1) 08/30/24 06:20 Nucleated RBC % (auto) 0 % 08/30/24 06:20 Nucleated RBCs # 0.0 /100WBC 08/30/24 06:20 Sodium 139 mmol/L (136-145) 08/30/24 06:20 Potassium 4.3 mmol/L (3.5-5.1) 08/30/24 06:20 Chloride 104 mmol/L (98-107) 08/30/24 06:20 Carbon Dioxide 24 mmol/L (22-29) 08/30/24 06:20 Anion Gap 15.3 (5-19) 08/30/24 06:20 BUN 19 mg/dL (8-23) 08/30/24 06:20 Creatinine 1.0 mg/dL (0.5-0.9) H 08/30/24 06:20 GFR Calculation Not Reportable 08/30/24 06:20 Glucose 94 mg/dL (65-115) 08/30/24 06:20 Calculated Osmolality 290 mOsm/kg (285-295) 08/30/24 06:20 Calcium 9.6 mg/dL (8.5-10.5) 08/30/24 06:20 Phosphorus 3.9 mg/dL (2.5-4.5) 08/30/24 06:20 Magnesium 1.7 mg/dL (1.7-2.3) 08/30/24 06:20 Total Bilirubin 0.7 mg/dL (0.15-1.2) 08/30/24 06:20 AST 17 U/L (0-32) 08/30/24 06:20 ALT 11 U/L (0-33) 08/30/24 06:20 Alkaline Phosphatase 127 U/L (35-105) H 08/30/24 06:20 Troponin T Baseline 11 ng/L (0-10) H 08/29/24 13:56 Troponin T 120 Minute 11.31 ng/L (0-10) H 08/29/24 16:21 Delta Troponin T 0.31 ABS# (0-10) 08/29/24 16:21 Troponin T Hi Sens 6Hr 9.20 ng/L (0-10) 08/29/24 20:00 Troponin T Hi Sens 6Hr Delta -1.80 ng/L (0-12) L 08/29/24 20:00 NT-Pro-B Natriuret Pep 149 pg/mL (0-125) H 08/29/24 13:56 Total Protein 7.0 g/dL (6.6-8.7) 08/30/24 06:20 Albumin 3.8 g/dL (3.5-5.2) 08/30/24 06:20 Globulin 3.2 g/dL (1.3-4.6) 08/30/24 06:20 Triglycerides 124 mg/dL (0-150) 08/30/24 06:20 Cholesterol 110 mg/dL (0-200) 08/30/24 06:20 LDL Cholesterol, Calc 52 mg/dL (50-129) 08/30/24 06:20 HDL Cholesterol 33 mg/dL (60-100) L 08/30/24 06:20 LDL/HDL Ratio 1.58 RATIO (0.00-3.22) 08/30/24 06:20 Cholesterol/HDL Ratio 3.33 mg/dL (0.0-4.40) 08/30/24 06:20 TSH 0.44 uIU/mL (0.27-4.20) 08/30/24 06:20 Urine Color Yellow (Yellow) 08/29/24 14:08 Urine Appearance Clear (CLEAR) 08/29/24 14:08 Urine pH 7.5 (5-7) 08/29/24 14:08 Ur Specific [place] 1.004 (1.005-1.030) L 08/29/24 14:08 Urine Protein Negative (Negative) 08/29/24 14:08 Urine Glucose (UA) Negative (Normal) 08/29/24 14:08 Urine Ketones Negative (Negative) 08/29/24 14:08 Urine Blood Negative (Negative) 08/29/24 14:08 Urine Nitrate Negative (Negative) 08/29/24 14:08 Urine Bilirubin Negative (Negative) 08/29/24 14:08 Urine Urobilinogen 0.2 mg/dL (Negative) 08/29/24 14:08 Ur Leukocyte Esterase Trace (Negative) A 08/29/24 14:08 Urine RBC 0-2 /hpf (0-2) 08/29/24 14:08 Urine WBC 0-5 /hpf (0-5) 08/29/24 14:08 Ur Squamous Epith Cells 0-5 /hpf (0-5) 08/29/24 14:08 Amorphous Sediment Not Reportable 08/29/24 14:08 Urine Bacteria None seen /hpf (NONE) 08/29/24 14:08 Hyaline Casts 0-4 /lpf H 08/29/24 14:08 Vitals Last Vital Signs Temp 98.6 F 08/30/24 04:00 Pulse 68 08/30/24 08:16 Resp 16 08/30/24 08:16 BP 152/52 08/30/24 08:29 Pulse Ox 93 08/30/24 08:16 O2 Del Method Room Air 08/30/24 08:16 O2 Flow Rate 2 08/30/24 01:08 Discharge Plan Discharge Patient Disposition: Home Condition: Stable Prescriptions: New aspirin 81 mg Tablet,Delayed Release (Dr/Ec) 81 mg PO DAILY 30 Days Qty: 30 0RF nitroglycerin 0.4 mg tablet, sublingual 0.4 mg sublingual Q5M 30 Days Qty: 30 0RF Rx Instructions: do not exceed 3 doses per episode Continued allopurinol 100 mg tablet 100 mg PO DAILY cyanocobalamin (vitamin B-12) 1,000 mcg capsule 1,000 mcg PO DAILY (DME) night splint See Rx Instructions .Route .MEDSUPPLY Qty: 1 0RF Rx Instructions: As directed amlodipine 5 mg tablet 5 mg PO DAILY cholecalciferol (vitamin D3) [Optimal D3] 1,250 mcg (50,000 unit) capsule See Rx Instructions .ROUTE .COMPLEX Qty: 4 5RF Dose Instruction: Take 1 capsule by mouth once a week Rx Instructions: Take 1 capsule by mouth once a week atorvastatin 20 mg tablet See Rx Instructions .ROUTE .COMPLEX Qty: 90 0RF Dose Instruction: Take 1 tablet by mouth once daily for 90 days Rx Instructions: Take 1 tablet by mouth once daily for 90 days trazodone 100 mg tablet 100 mg PO .HS Qty: 90 0RF duloxetine 60 mg capsule,delayed release(DR/EC) 60 mg PO DAILY 90 Days Qty: 90 0RF isosorbide mononitrate 30 mg tablet extended release 24 hr 30 mg PO DAILY Qty: 90 3RF metoprolol succinate 100 mg tablet extended release 24 hr 100 mg PO DAILY omeprazole 40 mg capsule,delayed release(DR/EC) 40 mg PO DAILY Rx Instructions: Take 1 capsule by mouth once daily levothyroxine [Euthyrox] 150 mcg tablet 150 mcg PO DAILY montelukast 10 mg tablet 10 mg PO BEDTIME losartan-hydrochlorothiazide 100-25 mg tablet 1 tab PO DAILY [place]-3 Fish Oil 910-1,400 mg Capsule 1 cap PO BID Discharge Orders: Discharge Order (Routine); Ordered 08/30/24 Ordered By: Tl Galindo Referrals: Lindsay Roque FNP [Primary Care Provider, Family Practice] Referral Note: OFFICE WILL CALL WITH APPOINTMENT FOR NEXT WEEK Dyan Nash MD [Physician, Cardiology] - 09/04/24 8:30 am Referral Note: We have notified your physician's clinic of the need for a follow-up appointment to be scheduled. If you have not heard from them within the next 2 business days, please call them directly. Discharge Diet: Cardiac Discharge Activity: Resume usual activity Patient Instructions: Nitroglycerin (By mouth), Aspirin (By mouth), Chest Pain (DC), Opioid Safety Activity Restrictions/Additional Instructions: -if any recurrent chest pain please go to emergency room Discharge Attestations Time Spent in Discharge Care*: greater than 30 min Quality Metrics Clinical Quality Measures [ No reported AMI, CVA or VTE this stay] Coding Level of Care Code 36170 Total time (in minutes) for Discharge: 45 Diagnoses Chest pain R07.9
--- NOTE | 2024-08-30 11:04 | PC.NURSE ---
Stress test results back. Dr. Mateo erwin with discharge home. Discharge instructions discussed with pt and family. No questions or concerns voiced at this time. Pt to private vehicle via wheelchair with all belongings.
== END 2024-08-30 11:07 | disposition home or self-care (01) ==
LOC: ER 17:21 → MEDSURG 08-30 08:46 → ER IP 08-30 09:05
PROVIDERS: Admitting Provider Family Medicine; Emergency Provider Emergency Medicine; PCP Nurse Practitioner Family; Visit Provider Family Medicine
DX: R07.9 Chest pain, unspecified (principal); G47.33 Obstructive sleep apnea (adult) (pediatric); K21.9 Gastro-esophageal reflux disease without esophagitis; E78.5 Hyperlipidemia, unspecified; E03.9 Hypothyroidism, unspecified; Z87.891 Personal history of nicotine dependence; E66.9 Obesity, unspecified; Z68.32 Body mass index [BMI] 32.0-32.9, adult; Z82.49 Family history of ischemic heart disease and other diseases of the circulatory system; I25.10 Atherosclerotic heart disease of native coronary artery without angina pectoris; I11.9 Hypertensive heart disease without heart failure
CPT/HCPCS: 36415; 71045; 78452; 80053; 80061; 81001; 83735; 83880; 84100; 84443; 84484; 85025; 93005; 93017; 93306; 94664; 96372; 96374; 99285; A9500; G0378; J1650; J2470; J2785; J9999

== ENCOUNTER → 2024-09-04 07:36 | Outpatient (BNVA) | payer MEDICARE, MEDICAID, SELFPAY | PROVIDERS: PCP Nurse Practitioner Family; Visit Provider Nurse Practitioner Family | DX: R07.89 Other chest pain (principal); Z09 Encounter for follow-up examination after completed treatment for conditions other than malignant neoplasm; I25.10 Atherosclerotic heart disease of native coronary artery without angina pectoris; R06.09 Other forms of dyspnea; E03.9 Hypothyroidism, unspecified; I10 Essential (primary) hypertension; E78.5 Hyperlipidemia, unspecified; G47.33 Obstructive sleep apnea (adult) (pediatric); Z79.82 Long term (current) use of aspirin; Z87.891 Personal history of nicotine dependence | CPT/HCPCS: 99213 ==

== ENCOUNTER → 2024-10-04 07:49 | Outpatient (BNVA) | payer MEDICARE, MEDICAID, SELFPAY | PROVIDERS: PCP Nurse Practitioner Family; Visit Provider Nurse Practitioner Family | DX: I10 Essential (primary) hypertension (principal); E78.2 Mixed hyperlipidemia; R06.00 Dyspnea, unspecified; I25.10 Atherosclerotic heart disease of native coronary artery without angina pectoris; Z87.891 Personal history of nicotine dependence | CPT/HCPCS: 99214 ==

== ENCOUNTER 2025-03-03 13:44 | Outpatient (RCR) | payer MEDICARE, MEDICAID, SELFPAY | END 2025-03-09 23:59 | disposition home or self-care (01) | LOC: WPT 13:44 | PROVIDERS: Visit Provider Nurse Practitioner Family | DX: M54.9 Dorsalgia, unspecified (principal); M16.12 Unilateral primary osteoarthritis, left hip; Z96.641 Presence of right artificial hip joint; M10.9 Gout, unspecified | CPT/HCPCS: 97110; 97112; 97161; 97530 ==

== ENCOUNTER → 2025-03-24 10:18 | Outpatient (BNVA) | payer MEDICARE, MEDICAID, SELFPAY | PROVIDERS: PCP Nurse Practitioner Family; Visit Provider Internal Medicine Cardiovascular Disease | DX: I25.10 Atherosclerotic heart disease of native coronary artery without angina pectoris (principal); I10 Essential (primary) hypertension; E78.2 Mixed hyperlipidemia; Z87.891 Personal history of nicotine dependence | CPT/HCPCS: 99214 ==

== ENCOUNTER 2025-04-08 13:55 | Outpatient (RCR) | payer MEDICARE, MEDICAID, SELFPAY | END 2025-04-09 23:59 | disposition home or self-care (01) | LOC: WPT 13:55 | PROVIDERS: Visit Provider Nurse Practitioner Family | DX: M54.9 Dorsalgia, unspecified (principal); M16.12 Unilateral primary osteoarthritis, left hip; M10.9 Gout, unspecified; Z96.641 Presence of right artificial hip joint | CPT/HCPCS: 97110; 97112; 97530 ==